=== PATIENT | male | born 1935 | race Caucasian/White ===

== ENCOUNTER 2018-05-24 09:24 | Outpatient (CLI) | payer MEDICARE, OTHER, SELFPAY ==
[2018-05-24 11:30] LABS: Hemoglobin A1C 6.8 % (4.5-6.2)
== END 2018-05-24 09:25 ==
PROVIDERS: PCP Family Medicine; Visit Provider Family Medicine
DX: R73.02 Impaired glucose tolerance (oral) (principal)
CPT/HCPCS: 36415; 83036

== ENCOUNTER 2021-04-08 10:45 | Outpatient (CLI) | payer MEDICARE, OTHER, SELFPAY ==
[2021-04-08 12:34] LABS: HCT 36.6 % (40.0-50.0); HGB 11.8 g/dL (13.5-17.5); MCH 30.3 pg (27.0-33.0); MCHC 32.2 % (32.0-36.0); MCV 93.8 fL (80-95); MPV 11.1 fL (8.0-11.0); Platelet Count 196 10^3/uL (130-400); RDW 12.2 % (11.8-14.1); RDW-SD 42.3 fL; WBC 7.72 10^3/uL (4.4-10.8)
[2021-04-08 12:43] LABS: Anion Gap 11.3 mmol/L (3-11); BUN 66 mg/dL (7-18); CO2 18.7 mmol/L (21.0-32.0); Calcium 8.9 mg/dL (8.5-10.1); Chloride 110 mmol/L (98-107); Estimated GFR 12.26 (mL/min/1.73m2); Glucose 107 mg/dL (74-106); Sodium 140 mmol/L (136-145)
[2021-04-08 12:45] LABS: Hemoglobin A1C 6.5 % (<5.7)
[2021-04-08 12:48] LABS: CREATININE 4.6 mg/dL (0.70-1.30); Potassium 7.5 mmol/L (3.5-5.1)
[2021-04-09 09:27] LABS: Kappa Free Light Chain 115.67 mg/dL (0.33-1.94); Lambda Free Light Chain 1.89 mg/dL (0.57-2.63)
[2021-04-09 13:24] LABS: Albumin 60.5 % (55.8-66.1); Comment (See Note); Monoclonal Spike 6.1 % (None Seen); Total Protein 7.1 g/dL (6.3-8.2)
[2021-04-09 16:08] LABS: Immunotyping, Serum (See Note)
== END 2021-04-08 10:46 | disposition home or self-care (01) ==
PROVIDERS: PCP Family Medicine; Referring Provider Family Medicine; Visit Provider Family Medicine
DX: E87.1 Hypo-osmolality and hyponatremia (principal); R73.9 Hyperglycemia, unspecified; R53.83 Other fatigue; C90.00 Multiple myeloma not having achieved remission
CPT/HCPCS: 36415; 80048; 85027; 83036; 83883; 84165; 86320

== ENCOUNTER 2021-04-29 07:09 | Outpatient (CLI) | payer MEDICARE, OTHER, SELFPAY ==
[2021-04-29 07:22] LABS: Abs Immature Grans 0.04 10^3/uL (0.0-0.06); Absolute Basophil Count 0.01 10^3/uL (0.0-0.2); Absolute Eosinophil Count 0.35 10^3/uL (0.0-0.7); Absolute Lymphocyte Count 0.82 10^3/uL (1.2-3.4); Absolute Monocyte Count 0.63 10^3/uL (0.1-0.8); Absolute Neutrophil Count 5.02 10^3/uL (1.2-6.7); Basophils % 0.1; Eosinophils % 5.1; HCT 33.2 % (40.0-50.0); HGB 11.2 g/dL (13.5-17.5); Immature Grans % 0.6; Lymphocytes % 11.9; MCH 30.4 pg (27.0-33.0); MCHC 33.7 % (32.0-36.0); MPV 10.8 fL (8.0-11.0); Monocytes % 9.2; Neutrophils % 73.1; Nucleated RBC 0 %; Platelet Count 171 10^3/uL (130-400); RBC 3.69 10^6/uL (4.36-5.78); RDW 11.9 % (11.8-14.1); RDW-SD 39.1 fL; WBC 6.87 10^3/uL (4.4-10.8)
[2021-04-29 07:38] LABS: ALT 40 U/L (16-63); AST 16 U/L (15-37); Albumin 3.4 g/dL (3.4-5.0); Alkaline Phosphatase 41 U/L (46-116); Anion Gap 10.1 mmol/L (3-11); BUN 48 mg/dL (7-18); Bilirubin, Total 0.6 mg/dL (0.2-1.0); CO2 22.9 mmol/L (21.0-32.0); CREATININE 2.8 mg/dL (0.70-1.30); Calcium 8.2 mg/dL (8.5-10.1); Chloride 102 mmol/L (98-107); Estimated GFR 21.75 (mL/min/1.73m2); Glucose 198 mg/dL (74-106); Potassium 4.6 mmol/L (3.5-5.1); Sodium 135 mmol/L (136-145); Total Protein 6.8 g/dL (6.4-8.2)
== END 2021-04-29 07:10 | disposition home or self-care (01) ==
PROVIDERS: PCP Family Medicine; Visit Provider Internal Medicine Hematology & Oncology
DX: C90.01 Multiple myeloma in remission (principal)
CPT/HCPCS: 36415; 80053; 85025

== ENCOUNTER 2021-05-06 03:35 | Outpatient (CLI) | payer MEDICARE, OTHER, SELFPAY ==
[2021-05-06 08:37] LABS: Abs Immature Grans 0.05 10^3/uL (0.0-0.06); Absolute Basophil Count 0.01 10^3/uL (0.0-0.2); Absolute Eosinophil Count 0.14 10^3/uL (0.0-0.7); Absolute Lymphocyte Count 0.57 10^3/uL (1.2-3.4); Absolute Monocyte Count 1.04 10^3/uL (0.1-0.8); Absolute Neutrophil Count 5.28 10^3/uL (1.2-6.7); Basophils % 0.1; HCT 36.1 % (40.0-50.0); HGB 12.2 g/dL (13.5-17.5); Immature Grans % 0.7; MCH 30.3 pg (27.0-33.0); MCHC 33.8 % (32.0-36.0); MCV 89.8 fL (80-95); MPV 11.4 fL (8.0-11.0); Monocytes % 14.7; Neutrophils % 74.5; Nucleated RBC 0 %; Platelet Count 157 10^3/uL (130-400); RBC 4.02 10^6/uL (4.36-5.78); RDW 11.8 % (11.8-14.1); RDW-SD 38.5 fL; WBC 7.09 10^3/uL (4.4-10.8)
[2021-05-06 08:53] LABS: ALT 65 U/L (16-63); AST 18 U/L (15-37); Albumin 3.5 g/dL (3.4-5.0); Alkaline Phosphatase 43 U/L (46-116); BUN 48 mg/dL (7-18); Bilirubin, Total 1.1 mg/dL (0.2-1.0); CREATININE 2.7 mg/dL (0.70-1.30); Calcium 8.4 mg/dL (8.5-10.1); Chloride 99 mmol/L (98-107); Estimated GFR 22.68 (mL/min/1.73m2); Glucose 156 mg/dL (74-106); Potassium 3.9 mmol/L (3.5-5.1); Sodium 136 mmol/L (136-145); Total Protein 6.9 g/dL (6.4-8.2)
[2021-05-07 10:26] LABS: IgA 78 mg/dL (85-499); IgG 466 mg/dL (610-1,616); IgM 20 mg/dL (35-242); Lambda Free Light Chain 1.12 mg/dL (0.57-2.63)
[2021-05-07 15:36] LABS: Comment (See Note); Monoclonal Spike 2.5 % (None Seen); Total Protein 6.4 g/dL (6.3-8.2)
== END 2021-05-06 03:36 | disposition home or self-care (01) ==
LOC: LBO 03:36
PROVIDERS: PCP Family Medicine; Visit Provider Internal Medicine Hematology & Oncology
DX: C90.01 Multiple myeloma in remission (principal)
CPT/HCPCS: 36415; 80053; 82784; 83883; 84165; 85025

== ENCOUNTER 2021-06-03 02:13 | Outpatient (RCR) | payer MEDICARE, OTHER, SELFPAY ==
[2021-05-13 07:29] LABS: Abs Immature Grans 0.02 10^3/uL (0.0-0.06); Absolute Basophil Count 0.01 10^3/uL (0.0-0.2); Absolute Eosinophil Count 0.11 10^3/uL (0.0-0.7); Absolute Lymphocyte Count 0.39 10^3/uL (1.2-3.4); Absolute Monocyte Count 0.31 10^3/uL (0.1-0.8); Absolute Neutrophil Count 0.77 10^3/uL (1.2-6.7); Basophils % 0.6; Eosinophils % 6.8; HCT 32.7 % (40.0-50.0); Immature Grans % 1.2; Lymphocytes % 24.2; MCH 30.5 pg (27.0-33.0); MCHC 33.6 % (32.0-36.0); MCV 90.6 fL (80-95); MPV 11.4 fL (8.0-11.0); Monocytes % 19.3; Neutrophils % 47.9; Nucleated RBC 0 %; Platelet Count 166 10^3/uL (130-400); RBC 3.61 10^6/uL (4.36-5.78); RDW 12.2 % (11.8-14.1); RDW-SD 39.9 fL
[2021-05-13 07:44] LABS: ALT 49 U/L (16-63); AST 13 U/L (15-37); Albumin 3.1 g/dL (3.4-5.0); Alkaline Phosphatase 41 U/L (46-116); Anion Gap 8.8 mmol/L (3-11); BUN 33 mg/dL (7-18); Bilirubin, Total 0.7 mg/dL (0.2-1.0); CO2 25.2 mmol/L (21.0-32.0); CREATININE 2.2 mg/dL (0.70-1.30); Calcium 8.3 mg/dL (8.5-10.1); Chloride 100 mmol/L (98-107); Estimated GFR 28.73 (mL/min/1.73m2); Glucose 163 mg/dL (74-106); Potassium 4.4 mmol/L (3.5-5.1); Sodium 134 mmol/L (136-145); Total Protein 6.6 g/dL (6.4-8.2)
[2021-05-13 08:09] LABS: WBC 1.61 10^3/uL (4.4-10.8)
[2021-05-13 08:10] LABS: Diff Comment Diff Reviewed; RBC Morphology Normal
[2021-05-20] MEDS: Normal Saline Flush 10 ML SYR IVP (08:07)
[2021-05-20 08:24] LABS: Abs Immature Grans 0.03 10^3/uL (0.0-0.06); Absolute Basophil Count 0.03 10^3/uL (0.0-0.2); Absolute Eosinophil Count 0.15 10^3/uL (0.0-0.7); Absolute Lymphocyte Count 0.33 10^3/uL (1.2-3.4); Absolute Monocyte Count 0.53 10^3/uL (0.1-0.8); Absolute Neutrophil Count 2.11 10^3/uL (1.2-6.7); Basophils % 0.9; Eosinophils % 4.7; HCT 31.2 % (40.0-50.0); HGB 10.4 g/dL (13.5-17.5); Immature Grans % 0.9; Lymphocytes % 10.4; MCH 30.4 pg (27.0-33.0); MCHC 33.3 % (32.0-36.0); MCV 91.2 fL (80-95); MPV 10.6 fL (8.0-11.0); Monocytes % 16.7; Neutrophils % 66.4; Nucleated RBC 0 %; Platelet Count 263 10^3/uL (130-400); RBC 3.42 10^6/uL (4.36-5.78); RDW 13.2 % (11.8-14.1); RDW-SD 42.1 fL; WBC 3.18 10^3/uL (4.4-10.8)
[2021-05-20 08:39] LABS: ALT 46 U/L (16-63); AST 14 U/L (15-37); Alkaline Phosphatase 44 U/L (46-116); Anion Gap 8.8 mmol/L (3-11); BUN 38 mg/dL (7-18); Bilirubin, Total 0.6 mg/dL (0.2-1.0); CO2 24.2 mmol/L (21.0-32.0); CREATININE 2.2 mg/dL (0.70-1.30); Calcium 8.6 mg/dL (8.5-10.1); Chloride 103 mmol/L (98-107); Estimated GFR 28.73 (mL/min/1.73m2); Glucose 118 mg/dL (74-106); Sodium 136 mmol/L (136-145); Total Protein 6.6 g/dL (6.4-8.2)
[2021-05-20 10:02] LABS: Iron 56 ug/dL (65-175); Total Iron Binding Capacity 283 ug/dL (250-450); Transferrin Sat 20 % (20-55)
[2021-05-21 10:10] LABS: IgA 86 mg/dL (85-499); IgG 330 mg/dL (610-1,616); IgM 16 mg/dL (35-242); Kappa Free Light Chain 2.36 mg/dL (0.33-1.94); Lambda Free Light Chain 1.26 mg/dL (0.57-2.63)
[2021-05-21 14:02] LABS: Albumin 54.1 % (55.8-66.1); Comment (See Note); Monoclonal Spike 2.1 % (None Seen); Total Protein 5.9 g/dL (6.3-8.2)
[2021-05-27] MEDS: Normal Saline Flush 10 ML SYR IVP (07:32)
[2021-05-27 07:58] LABS: Abs Immature Grans 0.07 10^3/uL (0.0-0.06); Absolute Basophil Count 0.03 10^3/uL (0.0-0.2); Absolute Eosinophil Count 0.14 10^3/uL (0.0-0.7); Absolute Lymphocyte Count 0.23 10^3/uL (1.2-3.4); Absolute Monocyte Count 0.16 10^3/uL (0.1-0.8); Absolute Neutrophil Count 4.29 10^3/uL (1.2-6.7); Basophils % 0.6; Eosinophils % 2.8; HCT 29.7 % (40.0-50.0); HGB 9.9 g/dL (13.5-17.5); Immature Grans % 1.4; Lymphocytes % 4.7; MCH 30.4 pg (27.0-33.0); MCHC 33.3 % (32.0-36.0); MCV 91.1 fL (80-95); MPV 11.8 fL (8.0-11.0); Monocytes % 3.3; Neutrophils % 87.2; Nucleated RBC 0 %; Platelet Count 200 10^3/uL (130-400); RBC 3.26 10^6/uL (4.36-5.78); RDW 13.5 % (11.8-14.1); RDW-SD 43.8 fL; WBC 4.92 10^3/uL (4.4-10.8)
[2021-05-27 08:04] LABS: ALT 49 U/L (16-63); AST 19 U/L (15-37); Albumin 2.5 g/dL (3.4-5.0); Alkaline Phosphatase 45 U/L (46-116); Anion Gap 10.3 mmol/L (3-11); BUN 32 mg/dL (7-18); Bilirubin, Total 0.7 mg/dL (0.2-1.0); CO2 23.7 mmol/L (21.0-32.0); CREATININE 2.2 mg/dL (0.70-1.30); Calcium 8.3 mg/dL (8.5-10.1); Chloride 99 mmol/L (98-107); Estimated GFR 28.73 (mL/min/1.73m2); Glucose 127 mg/dL (74-106); Potassium 3.8 mmol/L (3.5-5.1); Sodium 133 mmol/L (136-145); Total Protein 6.4 g/dL (6.4-8.2)
[2021-06-03] MEDS: Normal Saline Flush 10 ML SYR IVP (08:39)
[2021-06-03 08:46] LABS: Abs Immature Grans 0.06 10^3/uL (0.0-0.06); Absolute Basophil Count 0.01 10^3/uL (0.0-0.2); Absolute Eosinophil Count 0.05 10^3/uL (0.0-0.7); Absolute Lymphocyte Count 0.26 10^3/uL (1.2-3.4); Absolute Monocyte Count 0.29 10^3/uL (0.1-0.8); Basophils % 0.2; HCT 33.1 % (40.0-50.0); HGB 10.9 g/dL (13.5-17.5); Immature Grans % 1.2; Lymphocytes % 5.3; MCH 30.3 pg (27.0-33.0); MCHC 32.9 % (32.0-36.0); MCV 91.9 fL (80-95); MPV 11.7 fL (8.0-11.0); Neutrophils % 86.3; Nucleated RBC 0 %; Platelet Count 191 10^3/uL (130-400); RDW 13.7 % (11.8-14.1); RDW-SD 45.4 fL; WBC 4.87 10^3/uL (4.4-10.8)
[2021-06-03 09:13] LABS: Iron 125 ug/dL (65-175); Total Iron Binding Capacity 232 ug/dL (250-450); Transferrin Sat 54 % (20-55)
[2021-06-03 09:35] LABS: ALT 65 U/L (16-63); AST 21 U/L (15-37); Albumin 2.5 g/dL (3.4-5.0); Alkaline Phosphatase 58 U/L (46-116); Anion Gap 16.4 mmol/L (3-11); BUN 41 mg/dL (7-18); Bilirubin, Total 0.4 mg/dL (0.2-1.0); CO2 21.6 mmol/L (21.0-32.0); CREATININE 2.6 mg/dL (0.70-1.30); Calcium 8.2 mg/dL (8.5-10.1); Chloride 97 mmol/L (98-107); Estimated GFR 23.69 (mL/min/1.73m2); Ferritin 1845 ng/mL (26-388); Glucose 175 mg/dL (74-106); Potassium 3.5 mmol/L (3.5-5.1); Sodium 135 mmol/L (136-145); Total Protein 6.8 g/dL (6.4-8.2)
== END 2021-06-09 23:59 | disposition home or self-care (01) ==
LOC: INF 02:13
PROVIDERS: Internal Medicine Hematology & Oncology; PCP Family Medicine; Visit Provider Internal Medicine Medical Oncology
DX: C90.01 Multiple myeloma in remission (principal); K92.2 Gastrointestinal hemorrhage, unspecified
CPT/HCPCS: 36415; 80053; 82784; 82728; 83540; 83550; 83883; 84165; 85025

== ENCOUNTER 2021-07-01 13:30 | Outpatient (RCR) | payer MEDICARE, OTHER, SELFPAY ==
[2021-06-10 07:24] LABS: Abs Immature Grans 0.11 10^3/uL (0.0-0.06); Absolute Basophil Count 0.01 10^3/uL (0.0-0.2); Absolute Eosinophil Count 1.22 10^3/uL (0.0-0.7); Absolute Lymphocyte Count 0.67 10^3/uL (1.2-3.4); Absolute Monocyte Count 0.53 10^3/uL (0.1-0.8); Absolute Neutrophil Count 2.71 10^3/uL (1.2-6.7); Basophils % 0.2; Eosinophils % 23.2; HCT 29.3 % (40.0-50.0); HGB 9.6 g/dL (13.5-17.5); Immature Grans % 2.1; Lymphocytes % 12.8; MCH 30.4 pg (27.0-33.0); MCHC 32.8 % (32.0-36.0); MCV 92.7 fL (80-95); MPV 10.4 fL (8.0-11.0); Monocytes % 10.1; Neutrophils % 51.6; Nucleated RBC 0 %; Platelet Count 221 10^3/uL (130-400); RBC 3.16 10^6/uL (4.36-5.78); RDW-SD 47.1 fL; WBC 5.25 10^3/uL (4.4-10.8)
[2021-06-10 07:55] LABS: ALT 56 U/L (16-63); AST 14 U/L (15-37); Albumin 2.2 g/dL (3.4-5.0); Alkaline Phosphatase 50 U/L (46-116); Anion Gap 8.5 mmol/L (3-11); BUN 34 mg/dL (7-18); Bilirubin, Total 0.4 mg/dL (0.2-1.0); CO2 24.5 mmol/L (21.0-32.0); CREATININE 1.8 mg/dL (0.70-1.30); Calcium 8.2 mg/dL (8.5-10.1); Chloride 103 mmol/L (98-107); Estimated GFR 36.21 (mL/min/1.73m2); Glucose 175 mg/dL (74-106); Sodium 136 mmol/L (136-145); Total Protein 5.7 g/dL (6.4-8.2)
[2021-06-17 09:08] LABS: Abs Immature Grans 0.14 10^3/uL (0.0-0.06); Absolute Basophil Count 0.02 10^3/uL (0.0-0.2); Absolute Eosinophil Count 0.37 10^3/uL (0.0-0.7); Absolute Lymphocyte Count 1.17 10^3/uL (1.2-3.4); Absolute Monocyte Count 0.31 10^3/uL (0.1-0.8); Absolute Neutrophil Count 3.96 10^3/uL (1.2-6.7); Basophils % 0.3; Eosinophils % 6.2; HCT 28.2 % (40.0-50.0); Immature Grans % 2.3; Lymphocytes % 19.6; MCH 30.3 pg (27.0-33.0); MCHC 31.9 % (32.0-36.0); MCV 94.9 fL (80-95); MPV 10.2 fL (8.0-11.0); Monocytes % 5.2; Neutrophils % 66.4; Nucleated RBC 0 %; Platelet Count 222 10^3/uL (130-400); RBC 2.97 10^6/uL (4.36-5.78); RDW 15.3 % (11.8-14.1); RDW-SD 51.9 fL; WBC 5.97 10^3/uL (4.4-10.8)
[2021-06-17 09:20] LABS: ALT 56 U/L (16-63); AST 16 U/L (15-37); Albumin 2.6 g/dL (3.4-5.0); Alkaline Phosphatase 57 U/L (46-116); Anion Gap 8.8 mmol/L (3-11); BUN 26 mg/dL (7-18); Bilirubin, Total 0.4 mg/dL (0.2-1.0); CO2 26.2 mmol/L (21.0-32.0); CREATININE 1.4 mg/dL (0.70-1.30); Calcium 8.2 mg/dL (8.5-10.1); Chloride 104 mmol/L (98-107); Estimated GFR 48.28 (mL/min/1.73m2); Glucose 112 mg/dL (74-106); Potassium 3.8 mmol/L (3.5-5.1); Sodium 139 mmol/L (136-145); Total Protein 5.7 g/dL (6.4-8.2)
[2021-06-18 12:23] LABS: IgA 54 mg/dL (85-499); IgG 299 mg/dL (610-1,616); IgM <12 mg/dL (35-242); Lambda Free Light Chain 1.03 mg/dL (0.57-2.63)
[2021-06-18 14:33] LABS: Albumin 54.3 % (55.8-66.1); Comment (See Note); Monoclonal Spike 1.8 % (None Seen); Total Protein 5.1 g/dL (6.3-8.2)
== END 2021-07-09 23:59 | disposition home or self-care (01) ==
LOC: INF 13:30
PROVIDERS: Internal Medicine Hematology & Oncology; PCP Family Medicine; Visit Provider Internal Medicine Medical Oncology
DX: C90.01 Multiple myeloma in remission (principal)
CPT/HCPCS: 36415; 80053; 82784; 83883; 84165; 85025

== ENCOUNTER 2021-08-05 03:44 | Outpatient (RCR) | payer MEDICARE, OTHER, SELFPAY ==
[2021-07-15 09:08] LABS: Abs Immature Grans 0.05 10^3/uL (0.0-0.06); Absolute Basophil Count 0.02 10^3/uL (0.0-0.2); Absolute Eosinophil Count 0.08 10^3/uL (0.0-0.7); Absolute Lymphocyte Count 1.22 10^3/uL (1.2-3.4); Absolute Monocyte Count 0.76 10^3/uL (0.1-0.8); Absolute Neutrophil Count 5.29 10^3/uL (1.2-6.7); Basophils % 0.3; Eosinophils % 1.1; HCT 31.2 % (40.0-50.0); Immature Grans % 0.7; Lymphocytes % 16.4; MCH 31.8 pg (27.0-33.0); MCHC 32.1 % (32.0-36.0); MCV 99.4 fL (80-95); MPV 10.5 fL (8.0-11.0); Monocytes % 10.2; Neutrophils % 71.3; Nucleated RBC 0 %; Platelet Count 212 10^3/uL (130-400); RBC 3.14 10^6/uL (4.36-5.78); RDW 16.9 % (11.8-14.1); RDW-SD 61.1 fL; WBC 7.42 10^3/uL (4.4-10.8)
[2021-07-15 09:20] LABS: ALT 25 U/L (16-63); AST 13 U/L (15-37); Albumin 3.2 g/dL (3.4-5.0); Alkaline Phosphatase 59 U/L (46-116); Anion Gap 6.9 mmol/L (3-11); BUN 17 mg/dL (7-18); Bilirubin, Total 0.4 mg/dL (0.2-1.0); CO2 28.1 mmol/L (21.0-32.0); CREATININE 1.2 mg/dL (0.70-1.30); Calcium 8.4 mg/dL (8.5-10.1); Chloride 108 mmol/L (98-107); Estimated GFR 57.68 (mL/min/1.73m2); Glucose 97 mg/dL (74-106); Potassium 3.7 mmol/L (3.5-5.1); Sodium 143 mmol/L (136-145); Total Protein 6.4 g/dL (6.4-8.2)
[2021-07-16 10:06] LABS: IgA 32 mg/dL (85-499); IgG 285 mg/dL (610-1,616); IgM <12 mg/dL (35-242); Kappa Free Light Chain 1.03 mg/dL (0.33-1.94); Lambda Free Light Chain 0.78 mg/dL (0.57-2.63)
[2021-07-16 13:52] LABS: Albumin 61.2 % (55.8-66.1); Comment (See Note)
[2021-08-05 12:36] LABS: Abs Immature Grans 0.05 10^3/uL (0.0-0.06); Absolute Basophil Count 0.02 10^3/uL (0.0-0.2); Absolute Eosinophil Count 0.09 10^3/uL (0.0-0.7); Absolute Lymphocyte Count 1.25 10^3/uL (1.2-3.4); Absolute Monocyte Count 0.64 10^3/uL (0.1-0.8); Absolute Neutrophil Count 5.24 10^3/uL (1.2-6.7); Basophils % 0.3; Eosinophils % 1.2; HCT 31.2 % (40.0-50.0); HGB 10.3 g/dL (13.5-17.5); Immature Grans % 0.7; Lymphocytes % 17.1; MCH 31.6 pg (27.0-33.0); MCV 95.7 fL (80-95); MPV 10.2 fL (8.0-11.0); Monocytes % 8.8; Neutrophils % 71.9; Nucleated RBC 0 %; Platelet Count 206 10^3/uL (130-400); RBC 3.26 10^6/uL (4.36-5.78); RDW 14.8 % (11.8-14.1); RDW-SD 52.2 fL; WBC 7.29 10^3/uL (4.4-10.8)
[2021-08-05 12:49] LABS: ALT 24 U/L (16-63); AST 12 U/L (15-37); Albumin 3.1 g/dL (3.4-5.0); Alkaline Phosphatase 50 U/L (46-116); Anion Gap 9.1 mmol/L (3-11); BUN 18 mg/dL (7-18); Bilirubin, Total 0.3 mg/dL (0.2-1.0); CO2 25.9 mmol/L (21.0-32.0); CREATININE 1.4 mg/dL (0.70-1.30); Calcium 8.5 mg/dL (8.5-10.1); Chloride 107 mmol/L (98-107); Estimated GFR 48.28 (mL/min/1.73m2); Glucose 177 mg/dL (74-106); Potassium 4.1 mmol/L (3.5-5.1); Sodium 142 mmol/L (136-145); Total Protein 6.1 g/dL (6.4-8.2)
== END 2021-08-09 23:59 | disposition home or self-care (01) ==
LOC: INF 03:44
PROVIDERS: Internal Medicine Hematology & Oncology; PCP Family Medicine; Visit Provider Internal Medicine Medical Oncology
DX: C90.01 Multiple myeloma in remission (principal)
CPT/HCPCS: 36415; 80053; 82784; 83883; 84165; 85025

== ENCOUNTER 2021-08-26 01:23 | Outpatient (RCR) | payer MEDICARE, OTHER, SELFPAY ==
[2021-08-26 08:18] LABS: Abs Immature Grans 0.08 10^3/uL (0.0-0.06); Absolute Basophil Count 0.04 10^3/uL (0.0-0.2); Absolute Eosinophil Count 0.12 10^3/uL (0.0-0.7); Absolute Lymphocyte Count 1.66 10^3/uL (1.2-3.4); Absolute Monocyte Count 0.74 10^3/uL (0.1-0.8); Absolute Neutrophil Count 5.92 10^3/uL (1.2-6.7); Basophils % 0.5; Eosinophils % 1.4; HCT 39.5 % (40.0-50.0); HGB 12.5 g/dL (13.5-17.5); Immature Grans % 0.9; Lymphocytes % 19.4; MCH 30.6 pg (27.0-33.0); MCHC 31.6 % (32.0-36.0); MCV 96.6 fL (80-95); MPV 10.9 fL (8.0-11.0); Monocytes % 8.6; Neutrophils % 69.2; Nucleated RBC 0 %; Platelet Count 194 10^3/uL (130-400); RBC 4.09 10^6/uL (4.36-5.78); RDW 14.5 % (11.8-14.1); RDW-SD 51.5 fL; WBC 8.56 10^3/uL (4.4-10.8)
[2021-08-26 08:32] LABS: Iron 66 ug/dL (65-175); Total Iron Binding Capacity 355 ug/dL (250-450); Transferrin Sat 19 % (20-55)
[2021-08-26 08:43] LABS: ALT 36 U/L (16-63); AST 15 U/L (15-37); Albumin 3.4 g/dL (3.4-5.0); Alkaline Phosphatase 53 U/L (46-116); Anion Gap 8.3 mmol/L (3-11); BUN 27 mg/dL (7-18); Bilirubin, Total 0.4 mg/dL (0.2-1.0); CO2 28.7 mmol/L (21.0-32.0); CREATININE 1.4 mg/dL (0.70-1.30); Chloride 105 mmol/L (98-107); Estimated GFR 48.28 (mL/min/1.73m2); Ferritin 146 ng/mL (26-388); Glucose 109 mg/dL (74-106); Sodium 142 mmol/L (136-145); Total Protein 6.5 g/dL (6.4-8.2)
[2021-08-27 12:21] LABS: IgA 33 mg/dL (85-499); IgG 333 mg/dL (610-1,616); IgM <12 mg/dL (35-242); Kappa Free Light Chain 1.01 mg/dL (0.33-1.94); Lambda Free Light Chain 0.68 mg/dL (0.57-2.63)
[2021-08-27 13:38] LABS: Albumin 62.6 % (55.8-66.1); Comment (See Note); Total Protein 6.2 g/dL (6.3-8.2)
== END 2021-09-08 23:59 | disposition home or self-care (01) ==
LOC: INF 01:23
PROVIDERS: Internal Medicine Hematology & Oncology; PCP Family Medicine; Visit Provider Internal Medicine Medical Oncology
DX: C90.01 Multiple myeloma in remission (principal)
CPT/HCPCS: 36415; 80053; 82784; 82728; 83540; 83550; 83883; 84165; 85025

== ENCOUNTER 2021-09-23 00:30 | Outpatient (RCR) | payer MEDICARE, OTHER, SELFPAY ==
[2021-09-09 13:22] LABS: Abs Immature Grans 0.03 10^3/uL (0.0-0.06); Absolute Basophil Count 0.02 10^3/uL (0.0-0.2); Absolute Eosinophil Count 0.09 10^3/uL (0.0-0.7); Absolute Lymphocyte Count 1.36 10^3/uL (1.2-3.4); Absolute Neutrophil Count 5.08 10^3/uL (1.2-6.7); Basophils % 0.3; Eosinophils % 1.2; HCT 36.3 % (40.0-50.0); HGB 11.5 g/dL (13.5-17.5); Immature Grans % 0.4; Lymphocytes % 18.7; MCH 30.3 pg (27.0-33.0); MCHC 31.7 % (32.0-36.0); MCV 95.8 fL (80-95); MPV 10.9 fL (8.0-11.0); Monocytes % 9.6; Neutrophils % 69.8; Nucleated RBC 0 %; Platelet Count 197 10^3/uL (130-400); RBC 3.79 10^6/uL (4.36-5.78); RDW 14.5 % (11.8-14.1); WBC 7.28 10^3/uL (4.4-10.8)
[2021-09-09 13:26] LABS: ALT 23 U/L (16-63); AST 13 U/L (15-37); Albumin 2.9 g/dL (3.4-5.0); Alkaline Phosphatase 44 U/L (46-116); BUN 19 mg/dL (7-18); Bilirubin, Total 0.3 mg/dL (0.2-1.0); CREATININE 1.3 mg/dL (0.70-1.30); Calcium 8.7 mg/dL (8.5-10.1); Chloride 104 mmol/L (98-107); Estimated GFR 52.59 (mL/min/1.73m2); Glucose 177 mg/dL (74-106); Potassium 3.7 mmol/L (3.5-5.1); Sodium 138 mmol/L (136-145); Total Protein 5.8 g/dL (6.4-8.2)
[2021-09-23 09:26] LABS: Abs Immature Grans 0.04 10^3/uL (0.0-0.06); Absolute Basophil Count 0.02 10^3/uL (0.0-0.2); Absolute Eosinophil Count 0.03 10^3/uL (0.0-0.7); Absolute Lymphocyte Count 0.42 10^3/uL (1.2-3.4); Absolute Monocyte Count 0.74 10^3/uL (0.1-0.8); Absolute Neutrophil Count 5.03 10^3/uL (1.2-6.7); Basophils % 0.3; Eosinophils % 0.5; HCT 41.9 % (40.0-50.0); HGB 13.2 g/dL (13.5-17.5); Immature Grans % 0.6; Lymphocytes % 6.7; MCH 30.1 pg (27.0-33.0); MCHC 31.5 % (32.0-36.0); MCV 95.7 fL (80-95); MPV 10.9 fL (8.0-11.0); Monocytes % 11.8; Neutrophils % 80.1; Nucleated RBC 0 %; Platelet Count 198 10^3/uL (130-400); RBC 4.38 10^6/uL (4.36-5.78); RDW 14.2 % (11.8-14.1); RDW-SD 50.7 fL; WBC 6.28 10^3/uL (4.4-10.8)
[2021-09-23 09:39] LABS: ALT 24 U/L (16-63); AST 23 U/L (15-37); Albumin 2.9 g/dL (3.4-5.0); Alkaline Phosphatase 38 U/L (46-116); Anion Gap 8.9 mmol/L (3-11); BUN 26 mg/dL (7-18); Bilirubin, Total 0.2 mg/dL (0.2-1.0); CO2 26.1 mmol/L (21.0-32.0); CREATININE 1.8 mg/dL (0.70-1.30); Calcium 8.2 mg/dL (8.5-10.1); Chloride 102 mmol/L (98-107); Estimated GFR 36.13 (mL/min/1.73m2); Glucose 151 mg/dL (74-106); Potassium 3.7 mmol/L (3.5-5.1); Sodium 137 mmol/L (136-145); Total Protein 6.1 g/dL (6.4-8.2)
[2021-09-23 15:19] LABS: NT-proBNP 263 pg/mL (<300)
[2021-09-24 10:16] LABS: IgA 24 mg/dL (85-499); IgG 242 mg/dL (610-1,616); IgM <12 mg/dL (35-242); Kappa Free Light Chain 1.11 mg/dL (0.33-1.94); Lambda Free Light Chain 0.78 mg/dL (0.57-2.63)
[2021-09-24 13:40] LABS: Albumin 57.4 % (55.8-66.1); Comment (See Note); Total Protein 5.8 g/dL (6.3-8.2)
== END 2021-10-09 23:59 | disposition home or self-care (01) ==
LOC: INF 00:30
PROVIDERS: Internal Medicine Hematology & Oncology; PCP Family Medicine; Visit Provider Internal Medicine Medical Oncology
DX: C90.01 Multiple myeloma in remission (principal); I50.9 Heart failure, unspecified
CPT/HCPCS: 36415; 80053; 82784; 83880; 83883; 84165; 85025

== ENCOUNTER 2021-10-21 01:33 | Outpatient (RCR) | payer MEDICARE, OTHER, SELFPAY ==
[2021-10-21 08:49] LABS: Abs Immature Grans 0.05 10^3/uL (0.0-0.06); Absolute Basophil Count 0.03 10^3/uL (0.0-0.2); Absolute Eosinophil Count 0.12 10^3/uL (0.0-0.7); Absolute Neutrophil Count 3.03 10^3/uL (1.2-6.7); Basophils % 0.6; Eosinophils % 2.5; HCT 36.7 % (40.0-50.0); HGB 11.4 g/dL (13.5-17.5); Lymphocytes % 20.7; MCH 29.8 pg (27.0-33.0); MCHC 31.1 % (32.0-36.0); MCV 96.1 fL (80-95); MPV 10.2 fL (8.0-11.0); Monocytes % 12.4; Neutrophils % 62.8; Nucleated RBC 0 %; Platelet Count 334 10^3/uL (130-400); RBC 3.82 10^6/uL (4.36-5.78); RDW-SD 56.7 fL; WBC 4.83 10^3/uL (4.4-10.8)
[2021-10-21 09:10] LABS: ALT 34 U/L (16-63); AST 20 U/L (15-37); Albumin 3.1 g/dL (3.4-5.0); Alkaline Phosphatase 52 U/L (46-116); Anion Gap 8.6 mmol/L (3-11); BUN 21 mg/dL (7-18); Bilirubin, Total 0.4 mg/dL (0.2-1.0); CO2 28.4 mmol/L (21.0-32.0); CREATININE 1.4 mg/dL (0.70-1.30); Calcium 8.4 mg/dL (8.5-10.1); Chloride 101 mmol/L (98-107); Estimated GFR 48.28 (mL/min/1.73m2); Glucose 104 mg/dL (74-106); Potassium 3.9 mmol/L (3.5-5.1); Sodium 138 mmol/L (136-145)
[2021-10-22 09:19] LABS: IgA 23 mg/dL (85-499); IgG 284 mg/dL (610-1,616); IgM <12 mg/dL (35-242); Kappa Free Light Chain 0.94 mg/dL (0.33-1.94); Lambda Free Light Chain 0.82 mg/dL (0.57-2.63)
[2021-10-22 13:29] LABS: Albumin 62.3 % (55.8-66.1); Comment (See Note); Total Protein 5.4 g/dL (6.3-8.2)
== END 2021-11-09 23:59 | disposition home or self-care (01) ==
LOC: INF 01:33
PROVIDERS: Internal Medicine Hematology & Oncology; PCP Family Medicine; Visit Provider Internal Medicine Medical Oncology
DX: C90.01 Multiple myeloma in remission (principal)
CPT/HCPCS: 36415; 80053; 82784; 83883; 84165; 85025

== ENCOUNTER 2021-11-18 00:43 | Outpatient (RCR) | payer MEDICARE, SELFPAY ==
[2021-11-18 08:54] LABS: Abs Immature Grans 0.02 10^3/uL (0.0-0.06); Absolute Basophil Count 0.04 10^3/uL (0.0-0.2); Absolute Eosinophil Count 0.07 10^3/uL (0.0-0.7); Absolute Lymphocyte Count 0.94 10^3/uL (1.2-3.4); Absolute Monocyte Count 0.66 10^3/uL (0.1-0.8); Absolute Neutrophil Count 2.98 10^3/uL (1.2-6.7); Basophils % 0.8; Eosinophils % 1.5; HCT 37.7 % (40.0-50.0); HGB 11.8 g/dL (13.5-17.5); Immature Grans % 0.4; MCH 29.9 pg (27.0-33.0); MCHC 31.3 % (32.0-36.0); MCV 95.4 fL (80-95); MPV 10.2 fL (8.0-11.0); Neutrophils % 63.3; Nucleated RBC 0 %; Platelet Count 258 10^3/uL (130-400); RBC 3.95 10^6/uL (4.36-5.78); RDW 15.9 % (11.8-14.1); WBC 4.71 10^3/uL (4.4-10.8)
[2021-11-18 09:04] LABS: ALT 17 U/L (16-63); AST 15 U/L (15-37); Albumin 3.1 g/dL (3.4-5.0); Alkaline Phosphatase 40 U/L (46-116); BUN 20 mg/dL (7-18); Bilirubin, Total 0.4 mg/dL (0.2-1.0); CREATININE 1.1 mg/dL (0.70-1.30); Calcium 8.6 mg/dL (8.5-10.1); Chloride 107 mmol/L (98-107); Glucose 94 mg/dL (74-106); Potassium 4.5 mmol/L (3.5-5.1); Sodium 139 mmol/L (136-145); Total Protein 5.7 g/dL (6.4-8.2)
[2021-11-19 10:39] LABS: IgA 17 mg/dL (85-499); IgG 293 mg/dL (610-1,616); IgM <12 mg/dL (35-242); Kappa Free Light Chain 0.94 mg/dL (0.33-1.94); Lambda Free Light Chain 0.61 mg/dL (0.57-2.63)
[2021-11-19 13:21] LABS: Albumin 63.4 % (55.8-66.1); Comment (See Note); Total Protein 5.1 g/dL (6.3-8.2)
== END 2021-12-07 23:59 | disposition home or self-care (01) ==
LOC: INF 00:43
PROVIDERS: Internal Medicine Hematology & Oncology; PCP Family Medicine; Visit Provider Internal Medicine Medical Oncology
DX: C90.01 Multiple myeloma in remission (principal)
CPT/HCPCS: 36415; 80053; 82784; 83883; 84165; 85025

== ENCOUNTER 2022-03-03 04:23 | Outpatient (CLI) | payer MEDICARE, SELFPAY ==
[2022-03-03 07:49] LABS: Abs Immature Grans 0.03 10^3/uL (0.0-0.06); Absolute Basophil Count 0.03 10^3/uL (0.0-0.2); Absolute Eosinophil Count 0.19 10^3/uL (0.0-0.7); Absolute Monocyte Count 0.86 10^3/uL (0.1-0.8); Absolute Neutrophil Count 4.25 10^3/uL (1.2-6.7); Basophils % 0.5; Eosinophils % 2.9; HCT 36.3 % (40.0-50.0); HGB 11.3 g/dL (13.5-17.5); Immature Grans % 0.5; MCHC 31.1 % (32.0-36.0); MCV 90 fL (80-95); MPV 9.8 fL (8.0-11.0); Monocytes % 13.3; Neutrophils % 65.8; Platelet Count 193 10^3/uL (130-400); RBC 4.04 10^6/uL (4.36-5.78); RDW 13.5 % (11.8-14.1); RDW-SD 44.6 fL; WBC 6.46 10^3/uL (4.4-10.8)
[2022-03-03 08:19] LABS: ALT 21 U/L (16-63); AST 18 U/L (15-37); Albumin 3.2 g/dL (3.4-5.0); Alkaline Phosphatase 46 U/L (46-116); Anion Gap 7.1 mmol/L (3-11); BUN 30 mg/dL (7-18); Bilirubin, Total 0.5 mg/dL (0.2-1.0); CO2 25.9 mmol/L (21.0-32.0); CREATININE 1.5 mg/dL (0.70-1.30); Calcium 8.8 mg/dL (8.5-10.1); Chloride 107 mmol/L (98-107); Estimated GFR 44.59 (mL/min/1.73m2); Ferritin 66 ng/mL (26-388); Glucose 115 mg/dL (74-106); Sodium 140 mmol/L (136-145); Total Protein 6.2 g/dL (6.4-8.2)
[2022-03-03 08:48] LABS: Iron 34 ug/dL (65-175); Total Iron Binding Capacity 316 ug/dL (250-450); Transferrin Sat 11 % (20-55)
[2022-03-04 10:11] LABS: IgA 27 mg/dL (85-499); IgG 363 mg/dL (610-1,616); IgM <12 mg/dL (35-242); Kappa Free Light Chain 1.49 mg/dL (0.33-1.94); Lambda Free Light Chain 0.93 mg/dL (0.57-2.63)
[2022-03-04 14:15] LABS: Albumin 59.9 % (55.8-66.1); Albumin g/dL 3.4 g/dL (3.6-5.2); Comment (See Note); Total Protein 5.6 g/dL (6.3-8.2)
[2022-03-04 15:37] LABS: Immunotyping, Serum (See Note)
== END 2022-03-03 04:24 | disposition home or self-care (01) ==
LOC: LBO 04:23
PROVIDERS: Internal Medicine Medical Oncology; PCP Family Medicine; Visit Provider Internal Medicine Hematology & Oncology
DX: C90.01 Multiple myeloma in remission (principal)
CPT/HCPCS: 36415; 80053; 82784; 82728; 83540; 83550; 83883; 84165; 85025; 86320

== ENCOUNTER 2022-03-08 00:47 | Outpatient (RCR) | payer MEDICARE, OTHER, SELFPAY | END 2022-03-09 23:59 | disposition home or self-care (01) | LOC: INF 00:47 | PROVIDERS: PCP Family Medicine; Visit Provider Internal Medicine Hematology & Oncology | DX: C90.00 Multiple myeloma not having achieved remission (principal) | CPT/HCPCS: 96372; Q0221 ==

== ENCOUNTER 2022-03-31 02:11 | Outpatient (CLI) | payer MEDICARE, OTHER, SELFPAY ==
[2022-03-31 10:59] LABS: Abs Immature Grans 0.03 10^3/uL (0.0-0.06); Absolute Basophil Count 0.04 10^3/uL (0.0-0.2); Absolute Eosinophil Count 0.13 10^3/uL (0.0-0.7); Absolute Lymphocyte Count 1.11 10^3/uL (1.2-3.4); Absolute Monocyte Count 0.81 10^3/uL (0.1-0.8); Absolute Neutrophil Count 4.89 10^3/uL (1.2-6.7); Basophils % 0.6; Eosinophils % 1.9; HCT 37.2 % (40.0-50.0); HGB 11.8 g/dL (13.5-17.5); Immature Grans % 0.4; Lymphocytes % 15.8; MCH 28.1 pg (27.0-33.0); MCHC 31.7 % (32.0-36.0); MCV 89 fL (80-95); MPV 10.1 fL (8.0-11.0); Monocytes % 11.6; Neutrophils % 69.7; Platelet Count 251 10^3/uL (130-400); RDW 13.6 % (11.8-14.1); RDW-SD 44.2 fL; WBC 7.01 10^3/uL (4.4-10.8)
[2022-03-31 11:21] LABS: Iron 39 ug/dL (65-175); Total Iron Binding Capacity 342 ug/dL (250-450); Transferrin Sat 11 % (20-55)
[2022-03-31 11:27] LABS: ALT 17 U/L (16-63); AST 16 U/L (15-37); Albumin 3.3 g/dL (3.4-5.0); Alkaline Phosphatase 42 U/L (46-116); Anion Gap 9.1 mmol/L (3-11); BUN 39 mg/dL (7-18); Bilirubin, Total 0.4 mg/dL (0.2-1.0); CO2 27.9 mmol/L (21.0-32.0); CREATININE 1.5 mg/dL (0.70-1.30); Calcium 8.6 mg/dL (8.5-10.1); Chloride 105 mmol/L (98-107); Estimated GFR 44.59 (mL/min/1.73m2); Ferritin 53 ng/mL (26-388); Glucose 112 mg/dL (74-106); Potassium 4.6 mmol/L (3.5-5.1); Sodium 142 mmol/L (136-145); Total Protein 6.5 g/dL (6.4-8.2)
[2022-04-01 10:16] LABS: IgA 30 mg/dL (85-499); IgG 372 mg/dL (610-1,616); IgM <12 mg/dL (35-242); Kappa Free Light Chain 1.11 mg/dL (0.33-1.94); Lambda Free Light Chain 0.68 mg/dL (0.57-2.63)
[2022-04-01 13:07] LABS: Albumin 60.5 % (55.8-66.1); Albumin g/dL 3.5 g/dL (3.6-5.2); Comment (See Note); Total Protein 5.8 g/dL (6.3-8.2)
== END 2022-03-31 02:12 | disposition home or self-care (01) ==
PROVIDERS: PCP Family Medicine; Visit Provider Internal Medicine Hematology & Oncology
DX: C90.01 Multiple myeloma in remission (principal); D64.9 Anemia, unspecified
CPT/HCPCS: 36415; 80053; 82784; 82728; 83540; 83550; 83883; 84165; 85025

== ENCOUNTER 2022-04-28 01:30 | Outpatient (CLI) | payer MEDICARE, OTHER, SELFPAY ==
[2022-04-28 09:18] LABS: Abs Immature Grans 0.05 10^3/uL (0.0-0.06); Absolute Basophil Count 0.04 10^3/uL (0.0-0.2); Absolute Eosinophil Count 0.19 10^3/uL (0.0-0.7); Absolute Lymphocyte Count 1.07 10^3/uL (1.2-3.4); Absolute Monocyte Count 0.96 10^3/uL (0.1-0.8); Absolute Neutrophil Count 5.56 10^3/uL (1.2-6.7); Basophils % 0.5; Eosinophils % 2.4; HGB 12.9 g/dL (13.5-17.5); Immature Grans % 0.6; Lymphocytes % 13.6; MCH 28.2 pg (27.0-33.0); MCHC 32.3 % (32.0-36.0); MCV 88 fL (80-95); MPV 10.4 fL (8.0-11.0); Monocytes % 12.2; Neutrophils % 70.7; Platelet Count 274 10^3/uL (130-400); RBC 4.57 10^6/uL (4.36-5.78); RDW 14.2 % (11.8-14.1); RDW-SD 45.2 fL; WBC 7.87 10^3/uL (4.4-10.8)
[2022-04-28 09:32] LABS: ALT 22 U/L (16-63); AST 13 U/L (15-37); Albumin 3.5 g/dL (3.4-5.0); Alkaline Phosphatase 44 U/L (46-116); Anion Gap 7.4 mmol/L (3-11); BUN 36 mg/dL (7-18); Bilirubin, Total 0.5 mg/dL (0.2-1.0); CO2 28.6 mmol/L (21.0-32.0); CREATININE 1.6 mg/dL (0.70-1.30); Calcium 8.4 mg/dL (8.5-10.1); Chloride 104 mmol/L (98-107); Estimated GFR 41.39 (mL/min/1.73m2); Ferritin 58 ng/mL (26-388); Glucose 116 mg/dL (74-106); Potassium 4.4 mmol/L (3.5-5.1); Sodium 140 mmol/L (136-145); Total Protein 6.5 g/dL (6.4-8.2)
[2022-04-28 09:34] LABS: Iron 53 ug/dL (65-175); Total Iron Binding Capacity 329 ug/dL (250-450); Transferrin Sat 16 % (20-55)
[2022-04-28 13:52] LABS: Lab Add On Test DONE
[2022-04-28 13:56] LABS: ESR 19 mm/hr (0-20)
[2022-04-28 14:36] LABS: Hemoglobin A1C 6.3 % (<5.7)
[2022-04-29 10:37] LABS: IgA 34 mg/dL (85-499); IgG 382 mg/dL (610-1,616); IgM <12 mg/dL (35-242); Kappa Free Light Chain 1.07 mg/dL (0.33-1.94); Lambda Free Light Chain 0.67 mg/dL (0.57-2.63)
[2022-04-29 13:37] LABS: Albumin 60.5 % (55.8-66.1); Albumin g/dL 3.6 g/dL (3.6-5.2); Comment (See Note); Total Protein 5.9 g/dL (6.3-8.2)
== END 2022-04-28 01:31 | disposition home or self-care (01) ==
PROVIDERS: PCP Family Medicine; Visit Provider Internal Medicine Hematology & Oncology
DX: D64.9 Anemia, unspecified (principal); C90.01 Multiple myeloma in remission
CPT/HCPCS: 36415; 80053; 82784; 85652; 82728; 83036; 83540; 83550; 83883; 84165; 85025; 86140

== ENCOUNTER 2022-05-26 09:29 | Outpatient (CLI) | payer MEDICARE, OTHER, SELFPAY ==
[2022-05-26 08:20] LABS: Abs Immature Grans 0.04 10^3/uL (0.0-0.06); Absolute Basophil Count 0.05 10^3/uL (0.0-0.2); Absolute Eosinophil Count 0.19 10^3/uL (0.0-0.7); Absolute Lymphocyte Count 1.15 10^3/uL (1.2-3.4); Absolute Monocyte Count 1.07 10^3/uL (0.1-0.8); Absolute Neutrophil Count 6.58 10^3/uL (1.2-6.7); Basophils % 0.6; Eosinophils % 2.1; HCT 38.4 % (40.0-50.0); HGB 12.3 g/dL (13.5-17.5); Immature Grans % 0.4; Lymphocytes % 12.7; MCH 28.1 pg (27.0-33.0); MCV 88 fL (80-95); MPV 9.7 fL (8.0-11.0); Monocytes % 11.8; Neutrophils % 72.4; Platelet Count 274 10^3/uL (130-400); RBC 4.38 10^6/uL (4.36-5.78); RDW 14.7 % (11.8-14.1); RDW-SD 47.6 fL; WBC 9.08 10^3/uL (4.4-10.8)
[2022-05-26 08:50] LABS: Iron 43 ug/dL (65-175); Total Iron Binding Capacity 348 ug/dL (250-450); Transferrin Sat 12 % (20-55)
[2022-05-26 08:52] LABS: ALT 17 U/L (16-63); AST 13 U/L (15-37); Albumin 3.3 g/dL (3.4-5.0); Alkaline Phosphatase 43 U/L (46-116); Anion Gap 7.2 mmol/L (3-11); BUN 29 mg/dL (7-18); Bilirubin, Total 0.4 mg/dL (0.2-1.0); CO2 29.8 mmol/L (21.0-32.0); CREATININE 1.4 mg/dL (0.70-1.30); Calcium 8.8 mg/dL (8.5-10.1); Chloride 102 mmol/L (98-107); Estimated GFR 48.28 (mL/min/1.73m2); Ferritin 58 ng/mL (26-388); Glucose 98 mg/dL (74-106); Potassium 4.3 mmol/L (3.5-5.1); Sodium 139 mmol/L (136-145); Total Protein 6.5 g/dL (6.4-8.2)
[2022-05-27 10:02] LABS: IgA 34 mg/dL (85-499); IgG 355 mg/dL (610-1,616); IgM <12 mg/dL (35-242); Kappa Free Light Chain 1.16 mg/dL (0.33-1.94); Lambda Free Light Chain 0.81 mg/dL (0.57-2.63)
[2022-05-27 13:41] LABS: Albumin 60.7 % (55.8-66.1); Albumin g/dL 3.5 g/dL (3.6-5.2); Comment (See Note); Total Protein 5.8 g/dL (6.3-8.2)
== END 2022-05-26 09:30 | disposition home or self-care (01) ==
LOC: LBO 09:44
PROVIDERS: PCP Family Medicine; Visit Provider Internal Medicine Hematology & Oncology
DX: D64.9 Anemia, unspecified (principal); C90.01 Multiple myeloma in remission
CPT/HCPCS: 36415; 80053; 82784; 82728; 83540; 83550; 83883; 84165; 85025

== ENCOUNTER 2022-06-23 13:35 | Outpatient (CLI) | payer MEDICARE, OTHER, SELFPAY ==
[2022-06-23 12:19] LABS: Abs Immature Grans 0.04 10^3/uL (0.0-0.06); Absolute Basophil Count 0.05 10^3/uL (0.0-0.2); Absolute Eosinophil Count 0.21 10^3/uL (0.0-0.7); Absolute Lymphocyte Count 1.04 10^3/uL (1.2-3.4); Absolute Monocyte Count 0.76 10^3/uL (0.1-0.8); Absolute Neutrophil Count 5.28 10^3/uL (1.2-6.7); Basophils % 0.7; Eosinophils % 2.8; HCT 39.8 % (40.0-50.0); HGB 12.8 g/dL (13.5-17.5); Immature Grans % 0.5; Lymphocytes % 14.1; MCH 28.6 pg (27.0-33.0); MCHC 32.2 % (32.0-36.0); MCV 89 fL (80-95); MPV 9.8 fL (8.0-11.0); Monocytes % 10.3; Neutrophils % 71.6; Platelet Count 227 10^3/uL (130-400); RBC 4.48 10^6/uL (4.36-5.78); RDW 15.3 % (11.8-14.1); RDW-SD 49.9 fL; WBC 7.38 10^3/uL (4.4-10.8)
[2022-06-23 12:49] LABS: Iron 37 ug/dL (65-175); Total Iron Binding Capacity 276 ug/dL (250-450); Transferrin Sat 13 % (20-55)
[2022-06-23 13:00] LABS: ALT 26 U/L (16-63); AST 15 U/L (15-37); Alkaline Phosphatase 49 U/L (46-116); Anion Gap 6.6 mmol/L (3-11); BUN 26 mg/dL (7-18); Bilirubin, Total 0.4 mg/dL (0.2-1.0); CO2 30.4 mmol/L (21.0-32.0); CREATININE 1.5 mg/dL (0.70-1.30); Calcium 8.6 mg/dL (8.5-10.1); Chloride 102 mmol/L (98-107); Estimated GFR 45.34 (mL/min/1.73m2); Ferritin 75 ng/mL (26-388); Glucose 108 mg/dL (74-106); Potassium 4.6 mmol/L (3.5-5.1); Sodium 139 mmol/L (136-145); Total Protein 6.2 g/dL (6.4-8.2)
[2022-06-24 10:33] LABS: IgA 36 mg/dL (85-499); IgG 310 mg/dL (610-1,616); IgM 12 mg/dL (35-242); Kappa Free Light Chain 0.99 mg/dL (0.33-1.94); Lambda Free Light Chain 0.84 mg/dL (0.57-2.63)
[2022-06-24 12:21] LABS: Albumin 60.1 % (55.8-66.1); Albumin g/dL 3.3 g/dL (3.6-5.2); Comment (See Note); Total Protein 5.5 g/dL (6.3-8.2)
== END 2022-06-23 13:36 | disposition home or self-care (01) ==
LOC: LBO 13:45
PROVIDERS: PCP Family Medicine; Visit Provider Internal Medicine Hematology & Oncology
DX: C90.01 Multiple myeloma in remission (principal); D64.9 Anemia, unspecified
CPT/HCPCS: 36415; 80053; 82784; 82728; 83540; 83550; 83883; 84165; 85025

== ENCOUNTER 2022-07-21 02:20 | Outpatient (CLI) | payer MEDICARE, OTHER, SELFPAY ==
[2022-07-21 10:17] LABS: Abs Immature Grans 0.03 10^3/uL (0.0-0.06); Absolute Basophil Count 0.05 10^3/uL (0.0-0.2); Absolute Eosinophil Count 0.12 10^3/uL (0.0-0.7); Absolute Lymphocyte Count 0.74 10^3/uL (1.2-3.4); Absolute Neutrophil Count 6.03 10^3/uL (1.2-6.7); Basophils % 0.6; Eosinophils % 1.5; HCT 39.4 % (40.0-50.0); HGB 12.5 g/dL (13.5-17.5); Immature Grans % 0.4; Lymphocytes % 9.5; MCH 28.1 pg (27.0-33.0); MCHC 31.7 % (32.0-36.0); MCV 89 fL (80-95); MPV 10.1 fL (8.0-11.0); Monocytes % 10.3; Neutrophils % 77.7; Platelet Count 289 10^3/uL (130-400); RBC 4.45 10^6/uL (4.36-5.78); RDW-SD 49.1 fL; WBC 7.77 10^3/uL (4.4-10.8)
[2022-07-21 10:52] LABS: ALT 18 U/L (16-63); AST 15 U/L (15-37); Albumin 3.2 g/dL (3.4-5.0); Alkaline Phosphatase 53 U/L (46-116); Anion Gap 7.5 mmol/L (3-11); BUN 26 mg/dL (7-18); Bilirubin, Total 0.3 mg/dL (0.2-1.0); CO2 29.5 mmol/L (21.0-32.0); CREATININE 1.4 mg/dL (0.70-1.30); Calcium 8.5 mg/dL (8.5-10.1); Chloride 105 mmol/L (98-107); Estimated GFR 49.25 (mL/min/1.73m2); Ferritin 40 ng/mL (26-388); Glucose 114 mg/dL (74-106); Potassium 4.1 mmol/L (3.5-5.1); Sodium 142 mmol/L (136-145); Total Protein 6.4 g/dL (6.4-8.2)
[2022-07-21 10:55] LABS: Iron 26 ug/dL (65-175); Total Iron Binding Capacity 324 ug/dL (250-450); Transferrin Sat 8 % (20-55)
[2022-07-22 09:35] LABS: IgA 39 mg/dL (85-499); IgG 307 mg/dL (610-1,616); IgM <12 mg/dL (35-242); Kappa Free Light Chain 1.24 mg/dL (0.33-1.94); Lambda Free Light Chain 0.99 mg/dL (0.57-2.63)
[2022-07-22 15:03] LABS: Albumin 59.1 % (55.8-66.1); Albumin g/dL 3.4 g/dL (3.6-5.2); Comment (See Note); Total Protein 5.7 g/dL (6.3-8.2)
== END 2022-07-21 02:21 | disposition home or self-care (01) ==
PROVIDERS: PCP Family Medicine; Visit Provider Internal Medicine Hematology & Oncology
DX: C90.01 Multiple myeloma in remission (principal); D64.9 Anemia, unspecified
CPT/HCPCS: 36415; 80053; 82784; 82728; 83540; 83550; 83883; 84165; 85025

== ENCOUNTER 2022-08-18 13:01 | Outpatient (CLI) | payer MEDICARE, OTHER, SELFPAY ==
[2022-08-18 13:17] LABS: Abs Immature Grans 0.03 10^3/uL (0.0-0.06); Absolute Basophil Count 0.05 10^3/uL (0.0-0.2); Absolute Eosinophil Count 0.28 10^3/uL (0.0-0.7); Absolute Lymphocyte Count 0.97 10^3/uL (1.2-3.4); Absolute Monocyte Count 0.74 10^3/uL (0.1-0.8); Absolute Neutrophil Count 3.94 10^3/uL (1.2-6.7); Basophils % 0.8; Eosinophils % 4.7; HCT 35.4 % (40.0-50.0); HGB 11.1 g/dL (13.5-17.5); Immature Grans % 0.5; Lymphocytes % 16.1; MCH 27.6 pg (27.0-33.0); MCHC 31.4 % (32.0-36.0); MCV 88 fL (80-95); MPV 9.7 fL (8.0-11.0); Monocytes % 12.3; Neutrophils % 65.6; Platelet Count 247 10^3/uL (130-400); RBC 4.02 10^6/uL (4.36-5.78); RDW 14.9 % (11.8-14.1); RDW-SD 48.2 fL; WBC 6.01 10^3/uL (4.4-10.8)
[2022-08-18 13:50] LABS: ALT 14 U/L (16-63); AST 17 U/L (15-37); Albumin 2.9 g/dL (3.4-5.0); Alkaline Phosphatase 52 U/L (46-116); Anion Gap 8.2 mmol/L (3-11); BUN 21 mg/dL (7-18); Bilirubin, Total 0.3 mg/dL (0.2-1.0); CO2 26.8 mmol/L (21.0-32.0); CREATININE 1.6 mg/dL (0.70-1.30); Calcium 8.3 mg/dL (8.5-10.1); Chloride 105 mmol/L (98-107); Estimated GFR 41.96 (mL/min/1.73m2); Ferritin 60 ng/mL (26-388); Glucose 171 mg/dL (74-106); Potassium 3.7 mmol/L (3.5-5.1); Sodium 140 mmol/L (136-145); Total Protein 5.9 g/dL (6.4-8.2)
[2022-08-18 13:58] LABS: Iron 25 ug/dL (65-175); Total Iron Binding Capacity 296 ug/dL (250-450); Transferrin Sat 8 % (20-55)
[2022-08-19 10:34] LABS: IgA 41 mg/dL (85-499); IgG 311 mg/dL (610-1616); IgM 12 mg/dL (35-242); Kappa Free Light Chain 1.74 mg/dL (0.33-1.94); Lambda Free Light Chain 1.25 mg/dL (0.57-2.63)
[2022-08-19 14:37] LABS: Albumin 57.1 % (55.8-66.1); Albumin g/dL 2.8 g/dL (3.6-5.2); Comment (See Note); Total Protein 4.9 g/dL (6.3-8.2)
== END 2022-08-18 13:02 | disposition home or self-care (01) ==
LOC: LBO 13:02
PROVIDERS: PCP Family Medicine; Visit Provider Internal Medicine Hematology & Oncology
DX: C90.01 Multiple myeloma in remission (principal); D64.9 Anemia, unspecified
CPT/HCPCS: 36415; 80053; 82784; 82728; 83540; 83550; 83883; 84165; 85025

== ENCOUNTER 2022-09-08 03:13 | Outpatient (RCR) | payer MEDICARE, OTHER, SELFPAY | END 2022-09-08 23:59 | disposition home or self-care (01) | LOC: INF 03:13 | PROVIDERS: PCP Family Medicine; Visit Provider Nurse Practitioner Family | DX: C90.00 Multiple myeloma not having achieved remission (principal) | CPT/HCPCS: 96372; Q0221 ==

== ENCOUNTER 2022-09-08 12:09 | Outpatient (CLI) | payer MEDICARE, OTHER, SELFPAY ==
[2022-09-08 12:14] LABS: Abs Immature Grans 0.09 10^3/uL (0.0-0.06); Absolute Basophil Count 0.06 10^3/uL (0.0-0.2); Absolute Eosinophil Count 1.12 10^3/uL (0.0-0.7); Absolute Lymphocyte Count 1.01 10^3/uL (1.2-3.4); Absolute Monocyte Count 0.96 10^3/uL (0.1-0.8); Absolute Neutrophil Count 6.05 10^3/uL (1.2-6.7); Basophils % 0.6; Eosinophils % 12.1; HCT 32.8 % (40.0-50.0); HGB 10.1 g/dL (13.5-17.5); Lymphocytes % 10.9; MCH 26.3 pg (27.0-33.0); MCHC 30.8 % (32.0-36.0); MCV 85 fL (80-95); MPV 9.3 fL (8.0-11.0); Monocytes % 10.3; Neutrophils % 65.1; Platelet Count 351 10^3/uL (130-400); RBC 3.84 10^6/uL (4.36-5.78); RDW 14.6 % (11.8-14.1); WBC 9.29 10^3/uL (4.4-10.8)
[2022-09-08 12:32] LABS: Iron 21 ug/dL (65-175); Total Iron Binding Capacity 281 ug/dL (250-450); Transferrin Sat 7 % (20-55)
[2022-09-08 12:57] LABS: ALT 19 U/L (16-63); AST 15 U/L (15-37); Albumin 2.8 g/dL (3.4-5.0); Alkaline Phosphatase 54 U/L (46-116); Anion Gap 7.9 mmol/L (3-11); BUN 33 mg/dL (7-18); Bilirubin, Total 0.4 mg/dL (0.2-1.0); CO2 27.1 mmol/L (21.0-32.0); CREATININE 1.8 mg/dL (0.70-1.30); Calcium 8.9 mg/dL (8.5-10.1); Chloride 99 mmol/L (98-107); Estimated GFR 36.43 (mL/min/1.73m2); Ferritin 96 ng/mL (26-388); Glucose 160 mg/dL (74-106); Potassium 4.1 mmol/L (3.5-5.1); Sodium 134 mmol/L (136-145); Total Protein 6.3 g/dL (6.4-8.2)
[2022-09-09 09:55] LABS: IgA 41 mg/dL (85-499); IgG 302 mg/dL (610-1616); IgM 12 mg/dL (35-242); Kappa Free Light Chain 1.41 mg/dL (0.33-1.94); Lambda Free Light Chain 0.95 mg/dL (0.57-2.63)
[2022-09-09 14:38] LABS: Albumin 54.1 % (55.8-66.1); Albumin g/dL 2.8 g/dL (3.6-5.2); Comment (See Note); Total Protein 5.1 g/dL (6.3-8.2)
== END 2022-09-08 12:10 | disposition home or self-care (01) ==
LOC: LBO 12:11
PROVIDERS: PCP Family Medicine; Visit Provider Internal Medicine Hematology & Oncology
DX: C90.01 Multiple myeloma in remission (principal); D64.9 Anemia, unspecified
CPT/HCPCS: 36415; 80053; 82784; 96372; Q0221; 82728; 83540; 83550; 83883; 84165; 85025

== ENCOUNTER 2023-02-23 12:19 | Outpatient (CLI) | payer MEDICARE, OTHER, SELFPAY ==
[2023-02-23 11:20] LABS: Abs Immature Grans 0.03 10^3/uL (0.0-0.06); Absolute Basophil Count 0.05 10^3/uL (0.0-0.2); Absolute Eosinophil Count 0.16 10^3/uL (0.0-0.7); Absolute Lymphocyte Count 0.96 10^3/uL (1.2-3.4); Absolute Monocyte Count 0.89 10^3/uL (0.1-0.8); Absolute Neutrophil Count 5.98 10^3/uL (1.2-6.7); Basophils % 0.6; HCT 39.9 % (40.0-50.0); HGB 12.9 g/dL (13.5-17.5); Immature Grans % 0.4; Lymphocytes % 11.9; MCH 27.9 pg (27.0-33.0); MCHC 32.3 % (32.0-36.0); MCV 86 fL (80-95); MPV 9.5 fL (8.0-11.0); Neutrophils % 74.1; Platelet Count 352 10^3/uL (130-400); RBC 4.62 10^6/uL (4.36-5.78); RDW-SD 47.7 fL; WBC 8.07 10^3/uL (4.4-10.8)
[2023-02-23 11:49] LABS: ALT 19 U/L (16-63); AST 14 U/L (15-37); Albumin 3.5 g/dL (3.4-5.0); Alkaline Phosphatase 66 U/L (46-116); Anion Gap 8.6 mmol/L (3-11); BUN 28 mg/dL (7-18); Bilirubin, Total 0.5 mg/dL (0.2-1.0); CO2 30.4 mmol/L (21.0-32.0); CREATININE 1.8 mg/dL (0.70-1.30); Calcium 8.8 mg/dL (8.5-10.1); Chloride 102 mmol/L (98-107); Estimated GFR 36.43 (mL/min/1.73m2); Ferritin 88 ng/mL (26-388); Glucose 127 mg/dL (74-106); Sodium 141 mmol/L (136-145); Total Protein 6.9 g/dL (6.4-8.2)
[2023-02-23 11:51] LABS: Iron 35 ug/dL (65-175); Total Iron Binding Capacity 287 ug/dL (250-450); Transferrin Sat 12 % (20-55)
[2023-02-23 12:37] LABS: Lab Add On Test DONE
[2023-02-23 12:55] LABS: Hemoglobin A1C 6.3 % (<5.7)
[2023-02-24 09:54] LABS: IgA 45 mg/dL (85-499); IgG 336 mg/dL (610-1616); IgM 15 mg/dL (35-242); Kappa Free Light Chain 1.31 mg/dL (0.33-1.94); Lambda Free Light Chain 0.95 mg/dL (0.57-2.63)
[2023-02-24 13:02] LABS: Albumin g/dL 3.5 g/dL (3.6-5.2); Comment (See Note)
== END 2023-02-23 12:20 | disposition home or self-care (01) ==
LOC: LBO 12:23
PROVIDERS: PCP Family Medicine; Visit Provider Internal Medicine Hematology & Oncology
DX: C90.01 Multiple myeloma in remission (principal); D64.9 Anemia, unspecified; E11.9 Type 2 diabetes mellitus without complications
CPT/HCPCS: 36415; 80053; 82784; 82728; 83036; 83540; 83550; 83883; 84165; 85025

== ENCOUNTER 2023-03-23 03:26 | Outpatient (CLI) | payer MEDICARE, OTHER, SELFPAY ==
[2023-03-23 11:26] LABS: Abs Immature Grans 0.04 10^3/uL (0.0-0.06); Absolute Basophil Count 0.03 10^3/uL (0.0-0.2); Absolute Eosinophil Count 0.32 10^3/uL (0.0-0.7); Absolute Lymphocyte Count 0.94 10^3/uL (1.2-3.4); Absolute Neutrophil Count 6.12 10^3/uL (1.2-6.7); Basophils % 0.4; Eosinophils % 3.8; HGB 12.2 g/dL (13.5-17.5); Immature Grans % 0.5; Lymphocytes % 11.1; MCH 27.7 pg (27.0-33.0); MCHC 32.1 % (32.0-36.0); MCV 86 fL (80-95); MPV 9.4 fL (8.0-11.0); Monocytes % 11.8; Neutrophils % 72.4; Platelet Count 256 10^3/uL (130-400); RBC 4.41 10^6/uL (4.36-5.78); RDW 14.8 % (11.8-14.1); RDW-SD 46.5 fL; WBC 8.45 10^3/uL (4.4-10.8)
[2023-03-23 11:58] LABS: ALT 22 U/L (16-63); AST 19 U/L (15-37); Albumin 3.1 g/dL (3.4-5.0); Alkaline Phosphatase 60 U/L (46-116); Anion Gap 6.8 mmol/L (3-11); BUN 33 mg/dL (7-18); Bilirubin, Total 0.5 mg/dL (0.2-1.0); CO2 29.2 mmol/L (21.0-32.0); CREATININE 1.6 mg/dL (0.70-1.30); Calcium 8.9 mg/dL (8.5-10.1); Chloride 103 mmol/L (98-107); Estimated GFR 41.96 (mL/min/1.73m2); Ferritin 93 ng/mL (26-388); Glucose 111 mg/dL (74-106); Potassium 4.1 mmol/L (3.5-5.1); Sodium 139 mmol/L (136-145); Total Protein 6.6 g/dL (6.4-8.2)
[2023-03-23 12:02] LABS: Iron 26 ug/dL (65-175); Total Iron Binding Capacity 266 ug/dL (250-450); Transferrin Sat 10 % (20-55)
[2023-03-24 09:17] LABS: IgA 42 mg/dL (85-499); IgG 320 mg/dL (610-1616); IgM 13 mg/dL (35-242); Kappa Free Light Chain 1.16 mg/dL (0.33-1.94); Lambda Free Light Chain 0.75 mg/dL (0.57-2.63)
[2023-03-24 12:38] LABS: Albumin 58.2 % (55.8-66.1); Albumin g/dL 3.3 g/dL (3.6-5.2); Comment (See Note); Total Protein 5.7 g/dL (6.3-8.2)
== END 2023-03-23 03:27 | disposition home or self-care (01) ==
PROVIDERS: PCP Family Medicine; Visit Provider Internal Medicine Hematology & Oncology
DX: C90.00 Multiple myeloma not having achieved remission (principal); N28.9 Disorder of kidney and ureter, unspecified; D50.0 Iron deficiency anemia secondary to blood loss (chronic)
CPT/HCPCS: 36415; 80053; 82784; 82728; 83540; 83550; 83883; 84165; 85025

== ENCOUNTER 2023-04-20 02:40 | Outpatient (CLI) | payer MEDICARE, OTHER, SELFPAY ==
[2023-04-20 12:07] LABS: Abs Immature Grans 0.06 10^3/uL (0.0-0.06); Absolute Basophil Count 0.06 10^3/uL (0.0-0.2); Absolute Eosinophil Count 0.24 10^3/uL (0.0-0.7); Absolute Lymphocyte Count 1.08 10^3/uL (1.2-3.4); Absolute Monocyte Count 0.86 10^3/uL (0.1-0.8); Absolute Neutrophil Count 5.36 10^3/uL (1.2-6.7); Basophils % 0.8; Eosinophils % 3.1; HCT 37.6 % (40.0-50.0); HGB 12.1 g/dL (13.5-17.5); Immature Grans % 0.8; Lymphocytes % 14.1; MCH 27.6 pg (27.0-33.0); MCHC 32.2 % (32.0-36.0); MCV 86 fL (80-95); MPV 9.7 fL (8.0-11.0); Monocytes % 11.2; Platelet Count 291 10^3/uL (130-400); RBC 4.38 10^6/uL (4.36-5.78); RDW 14.7 % (11.8-14.1); RDW-SD 46.7 fL; WBC 7.66 10^3/uL (4.4-10.8)
[2023-04-20 12:27] LABS: ALT 15 U/L (16-63); AST 19 U/L (15-37); Albumin 3.3 g/dL (3.4-5.0); Alkaline Phosphatase 66 U/L (46-116); Anion Gap 6.6 mmol/L (3-11); BUN 23 mg/dL (7-18); Bilirubin, Total 0.5 mg/dL (0.2-1.0); CO2 30.4 mmol/L (21.0-32.0); CREATININE 1.7 mg/dL (0.70-1.30); Calcium 8.7 mg/dL (8.5-10.1); Chloride 107 mmol/L (98-107); Estimated GFR 39.02 (mL/min/1.73m2); Ferritin 74 ng/mL (26-388); Glucose 118 mg/dL (74-106); Potassium 3.7 mmol/L (3.5-5.1); Sodium 144 mmol/L (136-145); Total Protein 6.5 g/dL (6.4-8.2)
[2023-04-20 12:47] LABS: Iron 32 ug/dL (65-175); Total Iron Binding Capacity 280 ug/dL (250-450); Transferrin Sat 11 % (20-55)
[2023-04-21 10:14] LABS: IgA 48 mg/dL (85-499); IgG 342 mg/dL (610-1616); IgM 16 mg/dL (35-242); Kappa Free Light Chain 1.52 mg/dL (0.33-1.94); Lambda Free Light Chain 0.98 mg/dL (0.57-2.63)
[2023-04-21 14:00] LABS: Albumin g/dL 3.5 g/dL (3.6-5.2); Comment (See Note)
== END 2023-04-20 02:41 | disposition home or self-care (01) ==
PROVIDERS: PCP Family Medicine; Visit Provider Internal Medicine Hematology & Oncology
DX: C90.00 Multiple myeloma not having achieved remission (principal); D50.0 Iron deficiency anemia secondary to blood loss (chronic); N28.9 Disorder of kidney and ureter, unspecified
CPT/HCPCS: 36415; 80053; 82784; 82728; 83540; 83550; 83883; 84165; 85025

== ENCOUNTER 2023-05-18 08:47 | Outpatient (CLI) | payer MEDICARE, OTHER, SELFPAY ==
[2023-05-18 09:04] LABS: Abs Immature Grans 0.04 10^3/uL (0.0-0.06); Absolute Basophil Count 0.05 10^3/uL (0.0-0.2); Absolute Eosinophil Count 0.33 10^3/uL (0.0-0.7); Absolute Lymphocyte Count 1.07 10^3/uL (1.2-3.4); Absolute Monocyte Count 0.95 10^3/uL (0.1-0.8); Absolute Neutrophil Count 5.48 10^3/uL (1.2-6.7); Basophils % 0.6; Eosinophils % 4.2; HCT 36.8 % (40.0-50.0); HGB 11.7 g/dL (13.5-17.5); Immature Grans % 0.5; Lymphocytes % 13.5; MCH 27.1 pg (27.0-33.0); MCHC 31.8 % (32.0-36.0); MCV 85 fL (80-95); MPV 9.4 fL (8.0-11.0); Neutrophils % 69.2; Platelet Count 269 10^3/uL (130-400); RBC 4.32 10^6/uL (4.36-5.78); RDW 14.9 % (11.8-14.1); WBC 7.92 10^3/uL (4.4-10.8)
[2023-05-18 09:27] LABS: ALT 14 U/L (16-63); AST 12 U/L (15-37); Albumin 3.2 g/dL (3.4-5.0); Alkaline Phosphatase 65 U/L (46-116); Anion Gap 10.3 mmol/L (3-11); BUN 30 mg/dL (7-18); Bilirubin, Total 0.5 mg/dL (0.2-1.0); CO2 25.7 mmol/L (21.0-32.0); CREATININE 1.9 mg/dL (0.70-1.30); Calcium 8.5 mg/dL (8.5-10.1); Chloride 105 mmol/L (98-107); Estimated GFR 34.14 (mL/min/1.73m2); Ferritin 76 ng/mL (26-388); Glucose 159 mg/dL (74-106); Potassium 4.1 mmol/L (3.5-5.1); Sodium 141 mmol/L (136-145); Total Protein 6.3 g/dL (6.4-8.2)
[2023-05-18 09:29] LABS: Iron 27 ug/dL (65-175); Total Iron Binding Capacity 264 ug/dL (250-450); Transferrin Sat 10 % (20-55)
[2023-05-19 09:21] LABS: Kappa Free Light Chain 1.49 mg/dL (0.33-1.94); Lambda Free Light Chain 1.08 mg/dL (0.57-2.63)
[2023-05-19 11:50] LABS: IgA 42 mg/dL (85-499); IgG 322 mg/dL (610-1616); IgM 16 mg/dL (35-242)
[2023-05-19 13:24] LABS: Albumin 59.3 % (55.8-66.1); Albumin g/dL 3.5 g/dL (3.6-5.2); Comment (See Note); Total Protein 5.9 g/dL (6.3-8.2)
== END 2023-05-18 08:48 | disposition home or self-care (01) ==
LOC: LBO 08:49
PROVIDERS: PCP Family Medicine; Visit Provider Internal Medicine Hematology & Oncology
DX: D50.0 Iron deficiency anemia secondary to blood loss (chronic) (principal); C90.00 Multiple myeloma not having achieved remission; N28.9 Disorder of kidney and ureter, unspecified
CPT/HCPCS: 36415; 80053; 82784; 82728; 83540; 83550; 83883; 84165; 85025

== ENCOUNTER 2023-07-13 03:18 | Outpatient (CLI) | payer MEDICARE, OTHER, SELFPAY ==
[2023-07-13 10:07] LABS: Abs Immature Grans 0.05 10^3/uL (0.0-0.06); Absolute Basophil Count 0.06 10^3/uL (0.0-0.2); Absolute Eosinophil Count 0.36 10^3/uL (0.0-0.7); Absolute Lymphocyte Count 0.88 10^3/uL (1.2-3.4); Absolute Monocyte Count 0.83 10^3/uL (0.1-0.8); Absolute Neutrophil Count 6.75 10^3/uL (1.2-6.7); Basophils % 0.7; HCT 36.5 % (40.0-50.0); HGB 11.4 g/dL (13.5-17.5); Immature Grans % 0.6; Lymphocytes % 9.9; MCH 26.3 pg (27.0-33.0); MCHC 31.2 % (32.0-36.0); MCV 84 fL (80-95); MPV 9.3 fL (8.0-11.0); Monocytes % 9.3; Neutrophils % 75.5; Platelet Count 389 10^3/uL (130-400); RBC 4.33 10^6/uL (4.36-5.78); WBC 8.93 10^3/uL (4.4-10.8)
[2023-07-13 10:37] LABS: ALT 19 U/L (16-63); AST 12 U/L (15-37); Albumin 3.2 g/dL (3.4-5.0); Alkaline Phosphatase 68 U/L (46-116); Anion Gap 10.9 mmol/L (3-11); BUN 28 mg/dL (7-18); Bilirubin, Total 0.4 mg/dL (0.2-1.0); CO2 25.1 mmol/L (21.0-32.0); CREATININE 1.9 mg/dL (0.70-1.30); Calcium 9.4 mg/dL (8.5-10.1); Chloride 102 mmol/L (98-107); Estimated GFR 33.93 (mL/min/1.73m2); Ferritin 129 ng/mL (26-388); Glucose 144 mg/dL (74-106); Potassium 4.2 mmol/L (3.5-5.1); Sodium 138 mmol/L (136-145); Total Protein 6.8 g/dL (6.4-8.2)
[2023-07-13 11:23] LABS: Iron 29 ug/dL (65-175); Total Iron Binding Capacity 269 ug/dL (250-450); Transferrin Sat 11 % (20-55)
[2023-07-14 10:48] LABS: IgA 52 mg/dL (85-499); IgG 356 mg/dL (610-1616); IgM 15 mg/dL (35-242); Kappa Free Light Chain 1.52 mg/dL (0.33-1.94); Lambda Free Light Chain 1.03 mg/dL (0.57-2.63)
[2023-07-14 13:25] LABS: Albumin 56.6 % (55.8-66.1); Albumin g/dL 3.4 g/dL (3.6-5.2); Comment (See Note)
== END 2023-07-13 03:19 | disposition home or self-care (01) ==
LOC: LBO 03:18
PROVIDERS: PCP Family Medicine; Visit Provider Internal Medicine Hematology & Oncology
DX: C90.00 Multiple myeloma not having achieved remission (principal); N28.9 Disorder of kidney and ureter, unspecified; D50.0 Iron deficiency anemia secondary to blood loss (chronic)
CPT/HCPCS: 36415; 80053; 82784; 82728; 83540; 83550; 83883; 84165; 85025

== ENCOUNTER 2023-08-10 05:26 | Outpatient (CLI) | payer MEDICARE, OTHER, SELFPAY ==
[2023-08-10 12:21] LABS: Abs Immature Grans 0.06 10^3/uL (0.0-0.06); Absolute Basophil Count 0.09 10^3/uL (0.0-0.2); Absolute Eosinophil Count 0.91 10^3/uL (0.0-0.7); Absolute Lymphocyte Count 1.07 10^3/uL (1.2-3.4); Absolute Monocyte Count 0.86 10^3/uL (0.1-0.8); Absolute Neutrophil Count 6.78 10^3/uL (1.2-6.7); Basophils % 0.9; Eosinophils % 9.3; HCT 36.3 % (40.0-50.0); HGB 11.3 g/dL (13.5-17.5); Immature Grans % 0.6; MCH 26.3 pg (27.0-33.0); MCHC 31.1 % (32.0-36.0); MCV 84 fL (80-95); Monocytes % 8.8; Neutrophils % 69.4; Platelet Count 461 10^3/uL (130-400); RDW 16.2 % (11.8-14.1); RDW-SD 50.1 fL; WBC 9.77 10^3/uL (4.4-10.8)
[2023-08-10 12:46] LABS: Iron 18 ug/dL (65-175); Total Iron Binding Capacity 240 ug/dL (250-450); Transferrin Sat 8 % (20-55)
[2023-08-10 12:50] LABS: ALT 14 U/L (16-63); AST 11 U/L (15-37); Albumin 3.1 g/dL (3.4-5.0); Alkaline Phosphatase 64 U/L (46-116); Anion Gap 12.5 mmol/L (3-11); BUN 24 mg/dL (7-18); Bilirubin, Total 0.4 mg/dL (0.2-1.0); CO2 25.5 mmol/L (21.0-32.0); CREATININE 1.8 mg/dL (0.70-1.30); Calcium 8.9 mg/dL (8.5-10.1); Chloride 101 mmol/L (98-107); Estimated GFR 36.21 (mL/min/1.73m2); Ferritin 177 ng/mL (26-388); Glucose 146 mg/dL (74-106); Sodium 139 mmol/L (136-145); Total Protein 6.7 g/dL (6.4-8.2)
[2023-08-11 08:52] LABS: IgA 58 mg/dL (85-499); IgG 357 mg/dL (610-1616); IgM 25 mg/dL (35-242); Lambda Free Light Chain 1.07 mg/dL (0.57-2.63)
[2023-08-11 13:27] LABS: Albumin 52.8 % (55.8-66.1); Albumin g/dL 3.2 g/dL (3.6-5.2)
[2023-08-11 15:59] LABS: Comment (See Note)
== END 2023-08-10 05:27 | disposition home or self-care (01) ==
PROVIDERS: PCP Family Medicine; Visit Provider Internal Medicine Hematology & Oncology
DX: C90.00 Multiple myeloma not having achieved remission (principal); N28.9 Disorder of kidney and ureter, unspecified; D50.0 Iron deficiency anemia secondary to blood loss (chronic)
CPT/HCPCS: 36415; 80053; 82784; 82728; 83540; 83550; 83883; 84165; 85025

== ENCOUNTER 2023-09-28 10:34 | Outpatient (CLI) | payer MEDICARE, OTHER, SELFPAY ==
[2023-09-28 09:12] LABS: Abs Immature Grans 0.06 10^3/uL (0.0-0.06); Absolute Basophil Count 0.07 10^3/uL (0.0-0.2); Absolute Monocyte Count 1.19 10^3/uL (0.1-0.8); Basophils % 0.5; Eosinophils % 0.8; HCT 30.7 % (40.0-50.0); HGB 9.5 g/dL (13.5-17.5); Immature Grans % 0.5; Lymphocytes % 7.6; MCH 26.5 pg (27.0-33.0); MCHC 30.9 % (32.0-36.0); MCV 86 fL (80-95); Neutrophils % 81.6; Platelet Count 251 10^3/uL (130-400); RBC 3.59 10^6/uL (4.36-5.78); RDW 18.1 % (11.8-14.1); RDW-SD 56.9 fL; WBC 13.18 10^3/uL (4.4-10.8)
[2023-09-28 09:13] LABS: Absolute Eosinophil Count 0.11 10^3/uL (0.0-0.7); Absolute Neutrophil Count 10.75 10^3/uL (1.2-6.7)
[2023-09-28 09:36] LABS: Iron 9 ug/dL (65-175); Total Iron Binding Capacity 236 ug/dL (250-450); Transferrin Sat 4 % (20-55)
[2023-09-28 09:49] LABS: ALT 16 U/L (16-63); AST 13 U/L (15-37); Albumin 2.7 g/dL (3.4-5.0); Alkaline Phosphatase 57 U/L (46-116); Anion Gap 8.5 mmol/L (3-11); BUN 26 mg/dL (7-18); Bilirubin, Total 0.4 mg/dL (0.2-1.0); CO2 26.5 mmol/L (21.0-32.0); Calcium 8.8 mg/dL (8.5-10.1); Chloride 102 mmol/L (98-107); Ferritin 207 ng/mL (26-388); Glucose 129 mg/dL (74-106); Sodium 137 mmol/L (136-145); Total Protein 6.3 g/dL (6.4-8.2)
[2023-09-28 15:37] LABS: Lab Add On Test DONE
[2023-09-28 16:19] LABS: Hemoglobin A1C 6.3 % (<5.7)
[2023-09-29 10:10] LABS: IgA 81 mg/dL (85-499); IgG 423 mg/dL (610-1616); IgM 19 mg/dL (35-242); Kappa Free Light Chain 2.47 mg/dL (0.33-1.94)
[2023-09-29 12:51] LABS: Albumin g/dL 3.1 g/dL (3.6-5.2); Total Protein 5.8 g/dL (6.3-8.2)
[2023-09-29 16:36] LABS: Comment (See Note)
== END 2023-09-28 10:35 | disposition home or self-care (01) ==
LOC: LBO 10:35
PROVIDERS: PCP Family Medicine; Visit Provider Internal Medicine Hematology & Oncology
DX: C90.00 Multiple myeloma not having achieved remission (principal); E11.9 Type 2 diabetes mellitus without complications
CPT/HCPCS: 36415; 80053; 82784; 82728; 83036; 83540; 83550; 83883; 84165; 85025

== ENCOUNTER 2023-10-26 10:42 | Outpatient (CLI) | payer MEDICARE, OTHER, SELFPAY ==
[2023-10-26 10:06] LABS: Abs Immature Grans 0.08 10^3/uL (0.0-0.06); Absolute Basophil Count 0.06 10^3/uL (0.0-0.2); Absolute Eosinophil Count 0.26 10^3/uL (0.0-0.7); Absolute Lymphocyte Count 1.07 10^3/uL (1.2-3.4); Absolute Monocyte Count 1.03 10^3/uL (0.1-0.8); Absolute Neutrophil Count 7.79 10^3/uL (1.2-6.7); Basophils % 0.6; Eosinophils % 2.5; HCT 35.3 % (40.0-50.0); HGB 10.9 g/dL (13.5-17.5); Immature Grans % 0.8; Lymphocytes % 10.4; MCH 26.2 pg (27.0-33.0); MCHC 30.9 % (32.0-36.0); MCV 85 fL (80-95); MPV 10.4 fL (8.0-11.0); Neutrophils % 75.7; Platelet Count 368 10^3/uL (130-400); RBC 4.16 10^6/uL (4.36-5.78); RDW 17.1 % (11.8-14.1); RDW-SD 53.2 fL; WBC 10.29 10^3/uL (4.4-10.8)
[2023-10-26 10:25] LABS: Iron 24 ug/dL (65-175); Total Iron Binding Capacity 288 ug/dL (250-450); Transferrin Sat 8 % (20-55)
[2023-10-26 10:32] LABS: ALT 19 U/L (16-63); AST 10 U/L (15-37); Albumin 3.1 g/dL (3.4-5.0); Alkaline Phosphatase 59 U/L (46-116); BUN 31 mg/dL (7-18); Bilirubin, Total 0.4 mg/dL (0.2-1.0); CREATININE 1.6 mg/dL (0.70-1.30); Chloride 103 mmol/L (98-107); Ferritin 117 ng/mL (26-388); Glucose 95 mg/dL (74-106); Potassium 5.7 mmol/L (3.5-5.1); Sodium 138 mmol/L (136-145); Total Protein 6.6 g/dL (6.4-8.2)
[2023-10-27 10:17] LABS: IgA 57 mg/dL (85-499); IgG 424 mg/dL (610-1616); IgM 15 mg/dL (35-242); Kappa Free Light Chain 1.76 mg/dL (0.33-1.94); Lambda Free Light Chain 1.08 mg/dL (0.57-2.63)
[2023-10-27 14:04] LABS: Albumin 56.9 % (55.8-66.1); Albumin g/dL 3.5 g/dL (3.6-5.2); Comment (See Note); Total Protein 6.1 g/dL (6.3-8.2)
[2023-10-29 16:35] LABS: Immunotyping, Serum (See Note)
== END 2023-10-26 10:43 | disposition home or self-care (01) ==
LOC: LBO 10:42
PROVIDERS: PCP Family Medicine; Visit Provider Internal Medicine Hematology & Oncology
DX: C90.00 Multiple myeloma not having achieved remission (principal)
CPT/HCPCS: 36415; 80053; 82784; 82728; 83540; 83550; 83883; 84165; 85025; 86320

== ENCOUNTER 2024-02-15 12:47 | Outpatient (CLI) | payer MEDICARE, OTHER, SELFPAY ==
[2024-02-15 12:23] LABS: Abs Immature Grans 0.03 10^3/uL (0.0-0.06); Absolute Basophil Count 0.04 10^3/uL (0.0-0.2); Absolute Eosinophil Count 0.18 10^3/uL (0.0-0.7); Absolute Lymphocyte Count 1.07 10^3/uL (1.2-3.4); Absolute Neutrophil Count 6.13 10^3/uL (1.2-6.7); Basophils % 0.5 %; Eosinophils % 2.2 %; HGB 11.9 g/dL (13.5-17.5); Immature Grans % 0.4 %; Lymphocytes % 12.8 %; MCHC 32.2 % (32.0-36.0); MCV 84 fL (80-95); MPV 10.6 fL (8.0-11.0); Monocytes % 10.8 %; Neutrophils % 73.3 %; Platelet Count 278 10^3/uL (130-400); RDW 15.2 % (11.8-14.1); RDW-SD 46.5 fL; WBC 8.35 10^3/uL (4.4-10.8)
[2024-02-15 13:04] LABS: Iron 36 ug/dL (65-175); Total Iron Binding Capacity 296 ug/dL (250-450); Transferrin Sat 12 % (20-55)
[2024-02-15 13:32] LABS: ALT 16 U/L (16-63); AST 15 U/L (15-37); Albumin 3.7 g/dL (3.4-5.0); Alkaline Phosphatase 60 U/L (46-116); Anion Gap 14.4 mmol/L (3-11); BUN 46 mg/dL (7-18); Bilirubin, Total 0.4 mg/dL (0.2-1.0); CO2 24.6 mmol/L (21.0-32.0); CREATININE 1.7 mg/dL (0.70-1.30); Calcium 9.3 mg/dL (8.5-10.1); Chloride 102 mmol/L (98-107); Estimated GFR 38.78 (mL/min/1.73m2); Ferritin 74 ng/mL (26-388); Glucose 184 mg/dL (74-106); Potassium 4.4 mmol/L (3.5-5.1); Sodium 141 mmol/L (136-145); Total Protein 6.4 g/dL (6.4-8.2)
[2024-02-16 09:25] LABS: IgA 50 mg/dL (85-499); IgG 402 mg/dL (610-1616); IgM 16 mg/dL (35-242); Lambda Free Light Chain 1.12 mg/dL (0.57-2.63)
[2024-02-16 14:29] LABS: Albumin 59.1 % (55.8-66.1); Albumin g/dL 3.7 g/dL (3.6-5.2); Comment (See Note); Total Protein 6.2 g/dL (6.3-8.2)
== END 2024-02-15 12:48 | disposition home or self-care (01) ==
LOC: LBO 12:48
PROVIDERS: PCP Family Medicine; Visit Provider Internal Medicine Hematology & Oncology
DX: D50.0 Iron deficiency anemia secondary to blood loss (chronic) (principal); C90.00 Multiple myeloma not having achieved remission
CPT/HCPCS: 36415; 80053; 82784; 82728; 83540; 83550; 83883; 84165; 85025

== ENCOUNTER 2024-03-14 05:22 | Outpatient (CLI) | payer MEDICARE, OTHER, SELFPAY ==
[2024-03-14 08:57] LABS: Abs Immature Grans 0.09 10^3/uL (0.0-0.06); Absolute Basophil Count 0.05 10^3/uL (0.0-0.2); Absolute Eosinophil Count 0.33 10^3/uL (0.0-0.7); Absolute Lymphocyte Count 1.23 10^3/uL (1.2-3.4); Absolute Neutrophil Count 7.73 10^3/uL (1.2-6.7); Basophils % 0.5 %; Eosinophils % 3.2 %; HCT 37.6 % (40.0-50.0); HGB 11.8 g/dL (13.5-17.5); Immature Grans % 0.9 %; Lymphocytes % 11.8 %; MCH 26.8 pg (27.0-33.0); MCHC 31.4 % (32.0-36.0); MCV 86 fL (80-95); MPV 9.6 fL (8.0-11.0); Monocytes % 9.6 %; Platelet Count 331 10^3/uL (130-400); RDW 14.8 % (11.8-14.1); RDW-SD 46.5 fL; WBC 10.43 10^3/uL (4.4-10.8)
[2024-03-14 09:24] LABS: ALT 23 U/L (16-63); AST 13 U/L (15-37); Albumin 3.2 g/dL (3.4-5.0); Alkaline Phosphatase 63 U/L (46-116); Anion Gap 8.6 mmol/L (3-11); BUN 46 mg/dL (7-18); Bilirubin, Total 0.4 mg/dL (0.2-1.0); CO2 30.4 mmol/L (21.0-32.0); Calcium 8.7 mg/dL (8.5-10.1); Chloride 102 mmol/L (98-107); Ferritin 68 ng/mL (26-388); Glucose 124 mg/dL (74-106); Potassium 4.4 mmol/L (3.5-5.1); Sodium 141 mmol/L (136-145); Total Protein 6.7 g/dL (6.4-8.2)
[2024-03-14 10:36] LABS: Iron 29 ug/dL (65-175); Total Iron Binding Capacity 302 ug/dL (250-450); Transferrin Sat 10 % (20-55)
[2024-03-15 08:51] LABS: IgA 45 mg/dL (85-499); IgG 334 mg/dL (610-1616); IgM 13 mg/dL (35-242); Kappa Free Light Chain 1.09 mg/dL (0.33-1.94); Lambda Free Light Chain 0.92 mg/dL (0.57-2.63)
[2024-03-15 12:43] LABS: Albumin 57.9 % (55.8-66.1); Albumin g/dL 3.5 g/dL (3.6-5.2); Comment (See Note); Total Protein 6.1 g/dL (6.3-8.2)
== END 2024-03-14 05:23 | disposition home or self-care (01) ==
PROVIDERS: PCP Family Medicine; Visit Provider Nurse Practitioner Adult Health
DX: C90.00 Multiple myeloma not having achieved remission (principal)
CPT/HCPCS: 36415; 80053; 82784; 82728; 83540; 83550; 83883; 84165; 85025

== ENCOUNTER 2024-04-11 02:21 | Outpatient (CLI) | payer MEDICARE, OTHER, SELFPAY ==
[2024-04-11 08:52] LABS: Abs Immature Grans 0.04 10^3/uL (0.0-0.06); Absolute Eosinophil Count 0.41 10^3/uL (0.0-0.7); Absolute Lymphocyte Count 1.03 10^3/uL (1.2-3.4); Basophils % 0.3 %; Eosinophils % 3.5 %; HCT 41.9 % (40.0-50.0); HGB 13.1 g/dL (13.5-17.5); Immature Grans % 0.3 %; Lymphocytes % 8.8 %; MCH 26.6 pg (27.0-33.0); MCHC 31.3 % (32.0-36.0); MCV 85 fL (80-95); MPV 10.7 fL (8.0-11.0); Monocytes % 9.3 %; Neutrophils % 77.8 %; Platelet Count 306 10^3/uL (130-400); RBC 4.93 10^6/uL (4.36-5.78); RDW 16.2 % (11.8-14.1); RDW-SD 50.2 fL; WBC 11.66 10^3/uL (4.4-10.8)
[2024-04-11 08:56] LABS: Absolute Basophil Count 0.03 10^3/uL (0.0-0.2); Absolute Monocyte Count 1.08 10^3/uL (0.1-0.8); Absolute Neutrophil Count 9.07 10^3/uL (1.2-6.7)
[2024-04-11 09:23] LABS: ALT 25 U/L (16-63); AST 11 U/L (15-37); Albumin 3.7 g/dL (3.4-5.0); Alkaline Phosphatase 60 U/L (46-116); Anion Gap 9.6 mmol/L (3-11); BUN 51 mg/dL (7-18); Bilirubin, Total 0.45 mg/dL (0.2-1.0); CO2 26.4 mmol/L (21.0-32.0); CREATININE 1.9 mg/dL (0.70-1.30); Calcium 8.9 mg/dL (8.5-10.1); Chloride 106 mmol/L (98-107); Estimated GFR 33.93 (mL/min/1.73m2); Ferritin 35 ng/mL (26-388); Glucose 104 mg/dL (74-106); Potassium 4.3 mmol/L (3.5-5.1); Sodium 142 mmol/L (136-145); Total Protein 6.9 g/dL (6.4-8.2)
[2024-04-11 09:28] LABS: Iron 47 ug/dL (65-175); Total Iron Binding Capacity 341 ug/dL (250-450); Transferrin Sat 14 % (20-55)
[2024-04-12 08:57] LABS: IgA 38 mg/dL (85-499); IgG 357 mg/dL (610-1616); IgM 15 mg/dL (35-242); Kappa Free Light Chain 0.99 mg/dL (0.33-1.94); Lambda Free Light Chain 0.79 mg/dL (0.57-2.63)
[2024-04-16 11:10] LABS: Albumin 61.1 % (55.8-66.1); Albumin g/dL 3.8 g/dL (3.6-5.2); Comment (See Note); Total Protein 6.3 g/dL (6.3-8.2)
== END 2024-04-11 02:22 | disposition home or self-care (01) ==
PROVIDERS: PCP Family Medicine; Visit Provider Nurse Practitioner Adult Health
DX: C90.00 Multiple myeloma not having achieved remission (principal); N28.9 Disorder of kidney and ureter, unspecified
CPT/HCPCS: 36415; 80053; 82784; 82728; 83540; 83550; 83883; 84165; 85025

== ENCOUNTER 2024-05-09 02:34 | Outpatient (CLI) | payer MEDICARE, OTHER, SELFPAY ==
[2024-05-09 09:16] LABS: Abs Immature Grans 0.04 10^3/uL (0.0-0.06); Absolute Basophil Count 0.05 10^3/uL (0.0-0.2); Absolute Eosinophil Count 0.26 10^3/uL (0.0-0.7); Absolute Lymphocyte Count 1.01 10^3/uL (1.2-3.4); Absolute Monocyte Count 1.08 10^3/uL (0.1-0.8); Absolute Neutrophil Count 7.39 10^3/uL (1.2-6.7); Basophils % 0.5 %; Eosinophils % 2.6 %; HCT 40.2 % (40.0-50.0); HGB 12.4 g/dL (13.5-17.5); Immature Grans % 0.4 %; Lymphocytes % 10.3 %; MCH 26.8 pg (27.0-33.0); MCHC 30.8 % (32.0-36.0); MCV 87 fL (80-95); MPV 10.1 fL (8.0-11.0); Neutrophils % 75.2 %; Platelet Count 303 10^3/uL (130-400); RBC 4.63 10^6/uL (4.36-5.78); RDW 16.9 % (11.8-14.1); RDW-SD 53.8 fL; WBC 9.83 10^3/uL (4.4-10.8)
[2024-05-09 09:42] LABS: ALT 24 U/L (16-63); AST 14 U/L (15-37); Albumin 3.4 g/dL (3.4-5.0); Alkaline Phosphatase 66 U/L (46-116); Anion Gap 10.3 mmol/L (3-11); BUN 40 mg/dL (7-18); Bilirubin, Total 0.27 mg/dL (0.2-1.0); CO2 26.7 mmol/L (21.0-32.0); CREATININE 1.9 mg/dL (0.70-1.30); Chloride 104 mmol/L (98-107); Estimated GFR 33.93 (mL/min/1.73m2); Ferritin 30 ng/mL (26-388); Glucose 111 mg/dL (74-106); Potassium 4.3 mmol/L (3.5-5.1); Sodium 141 mmol/L (136-145); Total Protein 6.8 g/dL (6.4-8.2)
[2024-05-09 09:49] LABS: Iron 26 ug/dL (65-175); Total Iron Binding Capacity 330 ug/dL (250-450); Transferrin Sat 8 % (20-55)
[2024-05-10 10:03] LABS: IgA 39 mg/dL (85-499); IgG 321 mg/dL (610-1616); IgM 14 mg/dL (35-242); Kappa Free Light Chain 1.14 mg/dL (0.33-1.94); Lambda Free Light Chain 0.87 mg/dL (0.57-2.63)
[2024-05-10 12:44] LABS: Albumin 59.7 % (55.8-66.1); Albumin g/dL 3.7 g/dL (3.6-5.2); Comment (See Note); Total Protein 6.2 g/dL (6.3-8.2)
== END 2024-05-09 02:35 | disposition home or self-care (01) ==
LOC: LBO 02:34
PROVIDERS: Nurse Practitioner Adult Health; PCP Family Medicine; Visit Provider Internal Medicine Hematology & Oncology
DX: C90.00 Multiple myeloma not having achieved remission (principal); N28.9 Disorder of kidney and ureter, unspecified; D50.0 Iron deficiency anemia secondary to blood loss (chronic)
CPT/HCPCS: 36415; 80053; 82784; 82728; 83540; 83550; 83883; 84165; 85025

== ENCOUNTER 2024-06-13 02:58 | Outpatient (CLI) | payer MEDICARE, OTHER, SELFPAY ==
[2024-06-13 08:26] LABS: Abs Immature Grans 0.05 10^3/uL (0.0-0.06); Absolute Basophil Count 0.06 10^3/uL (0.0-0.2); Absolute Eosinophil Count 0.37 10^3/uL (0.0-0.7); Absolute Lymphocyte Count 1.15 10^3/uL (1.2-3.4); Absolute Monocyte Count 1.13 10^3/uL (0.1-0.8); Absolute Neutrophil Count 6.65 10^3/uL (1.2-6.7); Basophils % 0.6 %; Eosinophils % 3.9 %; HCT 38.5 % (40.0-50.0); HGB 12.2 g/dL (13.5-17.5); Immature Grans % 0.5 %; Lymphocytes % 12.2 %; MCHC 31.7 % (32.0-36.0); MCV 85 fL (80-95); MPV 10.2 fL (8.0-11.0); Neutrophils % 70.8 %; Platelet Count 269 10^3/uL (130-400); RBC 4.52 10^6/uL (4.36-5.78); RDW 15.8 % (11.8-14.1); RDW-SD 49.7 fL; WBC 9.41 10^3/uL (4.4-10.8)
[2024-06-13 08:59] LABS: ALT 19 U/L (16-63); AST 16 U/L (15-37); Albumin 3.4 g/dL (3.4-5.0); Alkaline Phosphatase 64 U/L (46-116); BUN 33 mg/dL (7-18); Bilirubin, Total 0.47 mg/dL (0.2-1.0); CREATININE 1.7 mg/dL (0.70-1.30); Calcium 9.2 mg/dL (8.5-10.1); Chloride 104 mmol/L (98-107); Estimated GFR 38.53 (mL/min/1.73m2); Ferritin 32 ng/mL (26-388); Glucose 100 mg/dL (74-106); Potassium 4.1 mmol/L (3.5-5.1); Sodium 140 mmol/L (136-145); Total Protein 6.8 g/dL (6.4-8.2)
[2024-06-13 09:01] LABS: Iron 28 ug/dL (65-175); Total Iron Binding Capacity 347 ug/dL (250-450); Transferrin Sat 8 % (20-55)
[2024-06-14 09:57] LABS: IgA 42 mg/dL (85-499); IgG 319 mg/dL (610-1616); IgM 21 mg/dL (35-242); Lambda Free Light Chain 0.76 mg/dL (0.57-2.63)
[2024-06-14 13:11] LABS: Albumin 58.4 % (55.8-66.1); Albumin g/dL 3.6 g/dL (3.6-5.2); Total Protein 6.2 g/dL (6.3-8.2)
[2024-06-14 16:11] LABS: Comment (See Note)
== END 2024-06-13 02:59 | disposition home or self-care (01) ==
PROVIDERS: PCP Family Medicine; Visit Provider Nurse Practitioner Adult Health
DX: D50.0 Iron deficiency anemia secondary to blood loss (chronic) (principal); N28.9 Disorder of kidney and ureter, unspecified
CPT/HCPCS: 36415; 80053; 82784; 82728; 83540; 83550; 83883; 84165; 85025

== ENCOUNTER 2024-07-11 02:14 | Outpatient (CLI) | payer MEDICARE, OTHER, SELFPAY ==
[2024-07-11 08:24] LABS: Abs Immature Grans 0.08 10^3/uL (0.0-0.06); Absolute Basophil Count 0.07 10^3/uL (0.0-0.2); Absolute Eosinophil Count 0.38 10^3/uL (0.0-0.7); Absolute Lymphocyte Count 1.45 10^3/uL (1.2-3.4); Absolute Monocyte Count 1.15 10^3/uL (0.1-0.8); Absolute Neutrophil Count 8.08 10^3/uL (1.2-6.7); Basophils % 0.6 %; Eosinophils % 3.4 %; HCT 38.1 % (40.0-50.0); HGB 11.8 g/dL (13.5-17.5); Immature Grans % 0.7 %; Lymphocytes % 12.9 %; MCH 26.4 pg (27.0-33.0); MCV 85 fL (80-95); Monocytes % 10.3 %; Neutrophils % 72.1 %; Platelet Count 379 10^3/uL (130-400); RBC 4.47 10^6/uL (4.36-5.78); RDW 15.8 % (11.8-14.1); WBC 11.21 10^3/uL (4.4-10.8)
[2024-07-11 08:49] LABS: ALT 19 U/L (16-63); AST 15 U/L (15-37); Albumin 3.3 g/dL (3.4-5.0); Alkaline Phosphatase 68 U/L (46-116); Anion Gap 11.6 mmol/L (3-11); BUN 34 mg/dL (7-18); CO2 27.4 mmol/L (21.0-32.0); CREATININE 1.9 mg/dL (0.70-1.30); Chloride 100 mmol/L (98-107); Estimated GFR 33.72 (mL/min/1.73m2); Ferritin 77 ng/mL (26-388); Glucose 108 mg/dL (74-106); Potassium 4.3 mmol/L (3.5-5.1); Sodium 139 mmol/L (136-145); Total Protein 7.1 g/dL (6.4-8.2)
[2024-07-11 09:08] LABS: Iron 40 ug/dL (65-175); Total Iron Binding Capacity 318 ug/dL (250-450); Transferrin Sat 13 % (20-55)
[2024-07-12 09:50] LABS: IgA 72 mg/dL (85-499); IgG 460 mg/dL (610-1616); IgM 35 mg/dL (35-242); Kappa Free Light Chain 3.26 mg/dL (0.33-1.94); Lambda Free Light Chain 2.44 mg/dL (0.57-2.63)
[2024-07-12 14:49] LABS: Albumin g/dL 3.6 g/dL (3.6-5.2); Comment (See Note); Total Protein 6.4 g/dL (6.3-8.2)
== END 2024-07-11 02:15 | disposition home or self-care (01) ==
PROVIDERS: PCP Family Medicine; Visit Provider Nurse Practitioner Adult Health
DX: D50.0 Iron deficiency anemia secondary to blood loss (chronic) (principal); C90.00 Multiple myeloma not having achieved remission; N28.9 Disorder of kidney and ureter, unspecified
CPT/HCPCS: 36415; 80053; 82784; 82728; 83540; 83550; 83883; 84165; 85025

== ENCOUNTER 2024-08-15 03:38 | Outpatient (CLI) | payer MEDICARE, OTHER, SELFPAY ==
[2024-08-15 13:06] LABS: Abs Immature Grans 0.05 10^3/uL (0.0-0.06); Absolute Basophil Count 0.06 10^3/uL (0.0-0.2); Absolute Eosinophil Count 0.16 10^3/uL (0.0-0.7); Absolute Lymphocyte Count 1.18 10^3/uL (1.2-3.4); Absolute Monocyte Count 0.73 10^3/uL (0.1-0.8); Absolute Neutrophil Count 8.47 10^3/uL (1.2-6.7); Basophils % 0.6 %; Eosinophils % 1.5 %; HCT 39.7 % (40.0-50.0); HGB 12.5 g/dL (13.5-17.5); Immature Grans % 0.5 %; Lymphocytes % 11.1 %; MCH 26.9 pg (27.0-33.0); MCHC 31.5 % (32.0-36.0); MCV 85 fL (80-95); MPV 10.4 fL (8.0-11.0); Monocytes % 6.9 %; Neutrophils % 79.4 %; Platelet Count 341 10^3/uL (130-400); RBC 4.65 10^6/uL (4.36-5.78); RDW 16.2 % (11.8-14.1); RDW-SD 49.9 fL; WBC 10.65 10^3/uL (4.4-10.8)
[2024-08-15 13:33] LABS: ALT 17 U/L (16-63); AST 12 U/L (15-37); Albumin 3.5 g/dL (3.4-5.0); Alkaline Phosphatase 64 U/L (46-116); Anion Gap 14.1 mmol/L (3-11); BUN 56 mg/dL (7-18); Bilirubin, Total 0.33 mg/dL (0.2-1.0); CO2 22.9 mmol/L (21.0-32.0); CREATININE 2.5 mg/dL (0.70-1.30); Calcium 9.1 mg/dL (8.5-10.1); Chloride 103 mmol/L (98-107); Estimated GFR 24.26 (mL/min/1.73m2); Ferritin 29 ng/mL (26-388); Glucose 221 mg/dL (74-106); Sodium 140 mmol/L (136-145); Total Protein 7.1 g/dL (6.4-8.2)
[2024-08-15 13:40] LABS: Iron 24 ug/dL (65-175); Total Iron Binding Capacity 316 ug/dL (250-450); Transferrin Sat 8 % (20-55)
[2024-08-16 09:42] LABS: IgA 54 mg/dL (85-499); IgG 444 mg/dL (610-1616); IgM 25 mg/dL (35-242); Kappa Free Light Chain 1.77 mg/dL (0.33-1.94); Lambda Free Light Chain 1.19 mg/dL (0.57-2.63)
[2024-08-16 13:34] LABS: Albumin 60.3 % (55.8-66.1); Albumin g/dL 3.9 g/dL (3.6-5.2); Comment (See Note); Total Protein 6.4 g/dL (6.3-8.2)
== END 2024-08-15 03:39 | disposition home or self-care (01) ==
PROVIDERS: PCP Family Medicine; Visit Provider Nurse Practitioner Adult Health
DX: C90.00 Multiple myeloma not having achieved remission (principal); Z23 Encounter for immunization
CPT/HCPCS: 36415; 80053; 82784; 82728; 83540; 83550; 83883; 84165; 85025

== ENCOUNTER 2025-03-13 02:32 | Outpatient (CLI) | payer MEDICARE, OTHER, SELFPAY ==
[2025-03-13 09:45] LABS: Abs Immature Grans 0.08 10^3/uL (0.0-0.06); Absolute Basophil Count 0.05 10^3/uL (0.0-0.2); Absolute Eosinophil Count 0.32 10^3/uL (0.0-0.7); Absolute Lymphocyte Count 1.47 10^3/uL (1.2-3.4); Absolute Monocyte Count 1.21 10^3/uL (0.1-0.8); Absolute Neutrophil Count 7.44 10^3/uL (1.2-6.7); Basophils % 0.5 %; HCT 35.1 % (40.0-50.0); Immature Grans % 0.8 %; Lymphocytes % 13.9 %; MCH 26.3 pg (27.0-33.0); MCHC 31.3 % (32.0-36.0); MCV 84 fL (80-95); MPV 10.3 fL (8.0-11.0); Monocytes % 11.4 %; Neutrophils % 70.4 %; Platelet Count 330 10^3/uL (130-400); RBC 4.19 10^6/uL (4.36-5.78); RDW-SD 49.1 fL; WBC 10.57 10^3/uL (4.4-10.8)
[2025-03-13 10:10] LABS: ALT 19 U/L (16-63); AST 14 U/L (15-37); Albumin 3.7 g/dL (3.4-5.0); Alkaline Phosphatase 60 U/L (46-116); Anion Gap 12.8 mmol/L (3-11); BUN 78 mg/dL (7-18); Bilirubin, Total 0.4 mg/dL (0.2-1.0); CO2 23.2 mmol/L (21.0-32.0); CREATININE 3.4 mg/dL (0.70-1.30); Calcium 8.7 mg/dL (8.5-10.1); Chloride 105 mmol/L (98-107); Estimated GFR 16.77 (mL/min/1.73m2); Ferritin 79 ng/mL (26-388); Glucose 125 mg/dL (74-106); Potassium 4.5 mmol/L (3.5-5.1); Sodium 141 mmol/L (136-145); Total Protein 7.4 g/dL (6.4-8.2)
[2025-03-13 10:13] LABS: Iron 37 ug/dL (65-175); Total Iron Binding Capacity 312 ug/dL (250-450); Transferrin Sat 12 % (20-55)
[2025-03-14 10:03] LABS: IgA 41 mg/dL (85-499); IgG 383 mg/dL (610-1616); IgM 17 mg/dL (35-242); Kappa Free Light Chain 3.04 mg/dL (0.33-1.94); Lambda Free Light Chain 1.07 mg/dL (0.57-2.63)
[2025-03-14 15:13] LABS: Albumin 60.1 % (55.8-66.1); Comment (See Note); Total Protein 6.6 g/dL (6.3-8.2)
== END 2025-03-13 02:33 | disposition home or self-care (01) ==
LOC: LBO 02:32
PROVIDERS: PCP Family Medicine; Visit Provider Nurse Practitioner Adult Health
DX: C90.01 Multiple myeloma in remission (principal); D50.0 Iron deficiency anemia secondary to blood loss (chronic)
CPT/HCPCS: 36415; 80053; 82784; 82728; 83540; 83550; 83883; 84165; 85025

== ENCOUNTER 2025-04-03 01:28 | Outpatient (CLI) | payer MEDICARE, OTHER, SELFPAY ==
[2025-04-03 09:09] LABS: Abs Immature Grans 0.05 10^3/uL (0.0-0.06); Absolute Basophil Count 0.06 10^3/uL (0.0-0.2); Absolute Eosinophil Count 0.43 10^3/uL (0.0-0.7); Absolute Lymphocyte Count 1.19 10^3/uL (1.2-3.4); Absolute Monocyte Count 0.96 10^3/uL (0.1-0.8); Absolute Neutrophil Count 7.58 10^3/uL (1.2-6.7); Basophils % 0.6 %; Eosinophils % 4.2 %; HCT 32.1 % (40.0-50.0); HGB 10.4 g/dL (13.5-17.5); Immature Grans % 0.5 %; Lymphocytes % 11.6 %; MCHC 32.4 % (32.0-36.0); MCV 83 fL (80-95); MPV 9.7 fL (8.0-11.0); Monocytes % 9.3 %; Neutrophils % 73.8 %; Platelet Count 265 10^3/uL (130-400); RBC 3.85 10^6/uL (4.36-5.78); RDW 15.6 % (11.8-14.1); RDW-SD 47.4 fL; WBC 10.27 10^3/uL (4.4-10.8)
[2025-04-03 09:57] LABS: Iron 32 ug/dL (65-175); Total Iron Binding Capacity 290 ug/dL (250-450); Transferrin Sat 11 % (20-55)
[2025-04-03 10:10] LABS: ALT 23 U/L (16-63); AST 12 U/L (15-37); Albumin 3.6 g/dL (3.4-5.0); Alkaline Phosphatase 65 U/L (46-116); BUN 62 mg/dL (7-18); Bilirubin, Total 0.4 mg/dL (0.2-1.0); CREATININE 3.5 mg/dL (0.70-1.30); Chloride 106 mmol/L (98-107); Ferritin 102 ng/mL (26-388); Glucose 132 mg/dL (74-106); Potassium 4.2 mmol/L (3.5-5.1); Sodium 141 mmol/L (136-145); Total Protein 7.3 g/dL (6.4-8.2)
[2025-04-03 17:43] LABS: Total Protein 6.3 g/dL (6.3-8.2)
[2025-04-04 10:26] LABS: IgA 51 mg/dL (85-499); IgG 391 mg/dL (610-1616); IgM 15 mg/dL (35-242); Kappa Free Light Chain 3.86 mg/dL (0.33-1.94)
[2025-04-04 13:22] LABS: Albumin 57.6 % (55.8-66.1); Albumin g/dL 3.6 g/dL (3.6-5.2); Comment (See Note)
== END 2025-04-03 01:29 | disposition home or self-care (01) ==
LOC: LBO 01:29
PROVIDERS: PCP Family Medicine; Visit Provider Nurse Practitioner Adult Health
DX: C90.01 Multiple myeloma in remission (principal); D50.0 Iron deficiency anemia secondary to blood loss (chronic)
CPT/HCPCS: 36415; 80053; 82784; 82728; 83540; 83550; 83883; 84165; 85025

== ENCOUNTER 2025-05-01 01:12 | Outpatient (CLI) | payer MEDICARE, OTHER, SELFPAY ==
--- NOTE | 2025-05-01 12:15 | DI.US_ITS ---
Exam(s) US RENAL EXAM: US RENAL CLINICAL HISTORY: Worsening renal function,RENAL INSUFFICIENCY,ACUTE ON CHRONIC,MULTIPLE. TECHNIQUE: Chowdhury scale, color and spectral Doppler were used. COMPARISON: No exams were available for comparison FINDINGS: Renal size in cm: Right: 10.7. Left: 13. Echogenicity: Normal. Hydronephrosis: There is marked bilateral hydroureteronephrosis. The dilated ureters are seen for some distance on this examination. Cyst or mass: There are bilateral simple renal cysts. The largest is on the left and measures 4.0 x 4.1 x 4.6 cm. No follow-up is recommended. Nephrolithiasis: There is a 3 mm echogenic focus in the right kidney which may represent a nonobstructing stone. Other findings: None. Bladder:No intraluminal masses are seen. Ureteral jets: Right: Visualized and unremarkable. Left: The left ureteral jet was not visualized on this examination. Prevoid vol:134 cc Postvoid vol:28 cc Prostate: 70 cc Renal color flow: Symmetric and within normal limits. IMPRESSION: 1. There is an enlarged prostate gland. There is a small postvoid urinary bladder volume. 2. Marked bilateral hydroureteronephrosis. A CT scan of the abdomen and pelvis and a nuclear medicine renal scan should be considered for further evaluation. 3. Right nephrolithiasis. Unexpected findings DATA REPOSITORY:
== END 2025-05-01 01:32 ==
LOC: DI 01:12
PROVIDERS: PCP Family Medicine; Visit Provider Family Medicine
DX: N13.30 Unspecified hydronephrosis (principal); N18.9 Chronic kidney disease, unspecified; C90.00 Multiple myeloma not having achieved remission
CPT/HCPCS: 76770

== ENCOUNTER 2025-05-01 02:33 | Outpatient (CLI) | payer MEDICARE, OTHER, SELFPAY ==
[2025-05-01 12:13] LABS: Abs Immature Grans 0.07 10^3/uL (0.0-0.06); HCT 32.0 % (40.0-50.0); HGB 10.4 g/dL (13.5-17.5); Immature Grans % 0.7 %; MCH 27.3 pg (27.0-33.0); MCHC 32.5 % (32.0-36.0); MCV 84 fL (80-95); MPV 10.8 fL (8.0-11.0); Platelet Count 311 10^3/uL (130-400); RBC 3.81 10^6/uL (4.36-5.78); RDW 16.7 % (11.8-14.1); RDW-SD 51.0 fL; WBC 10.12 10^3/uL (4.4-10.8)
[2025-05-01 12:29] LABS: Iron 38 ug/dL (65-175); Total Iron Binding Capacity 292 ug/dL (250-450); Transferrin Sat 13 % (20-55)
[2025-05-01 12:34] LABS: ALT 16 U/L (16-63); AST 13 U/L (15-37); Albumin 3.9 g/dL (3.4-5.0); Alkaline Phosphatase 69 U/L (46-116); Anion Gap 14.8 mmol/L (3-11); Bilirubin, Total 0.4 mg/dL (0.2-1.0); CO2 20.2 mmol/L (21.0-32.0); Calcium 9.1 mg/dL (8.5-10.1); Chloride 103 mmol/L (98-107); Estimated GFR 16.20 (mL/min/1.73m2); Ferritin 143 ng/mL (26-388); Glucose 104 mg/dL (74-106); Potassium 4.5 mmol/L (3.5-5.1); Sodium 138 mmol/L (136-145); Total Protein 7.5 g/dL (6.4-8.2)
[2025-05-01 12:40] LABS: BUN 81 mg/dL (7-18)
[2025-05-01 22:53] LABS: Total Protein 6.7 g/dL (6.3-8.2)
[2025-05-02 09:00] LABS: Kappa Free Light Chain 4.32 mg/dL (0.33-1.94); Lambda Free Light Chain 1.41 mg/dL (0.57-2.63)
[2025-05-02 15:11] LABS: Albumin 58.7 % (55.8-66.1); Albumin g/dL 3.9 g/dL (3.6-5.2); Alpha 1 g/dL 0.40 g/dL (0.15-0.40); Alpha 2 g/dL 1.30 g/dL (0.50-1.00); Beta g/dL 0.70 g/dL (0.60-1.20); Gamma g/dL 0.40 g/dL (0.60-1.60)
== END 2025-05-01 02:34 | disposition home or self-care (01) ==
PROVIDERS: PCP Family Medicine; Visit Provider Nurse Practitioner Adult Health
DX: C90.01 Multiple myeloma in remission (principal)
CPT/HCPCS: 76770; 80053; 82784; 82728; 83540; 83550; 83883; 84165; 85025

== ENCOUNTER 2025-05-21 01:01 | Outpatient (CLI) | payer MEDICARE, OTHER, SELFPAY ==
--- NOTE | 2025-05-21 07:30 | DI.CT_ITS ---
Exam(s) CT ABDOMEN PELVIS WO EXAM: CT ABDOMEN PELVIS WO CLINICAL HISTORY: further assess collecting system;nav hydronephrosis. TECHNIQUE: Imaging Protocol: Axial computed tomography images with coronal and sagittal reformatted images were created and reviewed. Oral: / no COMPARISON: US US RENAL from 05/01/2025 FINDINGS: Lung Bases: Limited evaluation due to respiratory motion. Fibrotic changes. The heart is enlarged. Liver: Normal density. No suspicious mass. Gallbladder and biliary tract: No radiodense calculus or biliary dilation. Pancreas: Normal density. No abnormal calcifications or inflammatory process. Spleen: Normal. Kidneys: Severe bilateral hydronephrosis. The ureters are dilated down to the ureterovesical junction. No obstructing stones. There is an irregular mass noted at posterior aspect of the bladder. The borders with the prostate are not defined. This may represent a bladder mass or prostate mass. There is some stranding in the adjacent fat. There is bilateral renal parenchymal thinning. Multiple bilateral renal cysts. No solid mass. Adrenal glands: No masses seen. Lymph nodes: Within normal limits. Vasculature: Abdominal aorta non-dilated. Soft tissues: Increased density in the soft tissues of the right lateral hip, presumably posttraumatic hematoma. Bilateral fat containing inguinal hernias. Prior right inguinal hernia repair. Bladder: Ill-defined mass at the posterior inferior aspect versus is infiltrated prostate mass. Mild diffuse wall thickening. Bowel: No obstruction or bowel wall thickening. Peritoneal cavity: No ascites. No focal collection. No mesenteric inflammatory response. Reproductive organs: Enlarged prostate. Borders with the bladder are not clearly defined. Bones: Unremarkable for age. IMPRESSION: Ill-defined mass at the posterior inferior aspect of the bladder versus infiltrative prostate mass. This causes severe bilateral hydronephrosis. Urology consult recommended Unexpected findings RADIATION DOSE DELIVERED: 523.6mGy.cm Total DLP DATA REPOSITORY: All CT scans at this facility are submitted to the National Radiology Data Registry (NRDR) Dose Index Registry (DIR) with the [employer] (A[employer]). RADIATION OPTIMIZATION: All CT scans at this facility use at least one of these dose optimization techniques: automated exposure control; mA and/or kV adjustment per patient size (includes targeted exams where dose is matched to clinical indication); or iterative reconstruction.
--- NOTE | 2025-05-21 12:30 | DI.NM_ITS ---
Exam(s) NM MAG 3 RENOGRAM W LASIX CLINICAL HISTORY: N28.9 Disorder of kidney ureter, worsening renal insufficiency. COMPARISON: CT CT ABDOMEN PELVIS WO from 05/21/2025 EXAMINATION: Dose: 9 mCi Tc-99m MAG3 Images: Immediately for 1 minute followed by dynamic for 30 minutes. Thirty- twomg Lasix was administered after peak uptake in the renal cortex at approximately 12 min. FINDINGS: Time to peak: Right: 15 min (< 5 min normal) Left: 26 min (< 5 min normal) The time activity curve reveals significant delay in the washout of either collecting system. Severe bilateral hydronephrosis with dilatation of the renal pelves and ureters is visible on the images. There is no significant visible decrease in activity at the 30 minute time period. This is consistent with high-grade obstruction bilaterally. (< 10 min normal, 10-15 min Low grade obstruction, 15-20 min moderate,. 20 min high grade) Split renal function: Right: 57 % Left: 43 % IMPRESSION: Marked bilateral hydronephrosis down to the level of the bladder. High-grade level of the obstruction. Please see separate CT report.
[2025-05-22] MEDS: Furosemide 40 MG/4 ML VIAL 32 MG IVP (08:51)
== END 2025-05-21 01:21 ==
LOC: DI 01:01
PROVIDERS: PCP Family Medicine; Visit Provider Family Medicine
DX: N13.30 Unspecified hydronephrosis (principal)
CPT/HCPCS: 74176; 78708; A9540; J1938

== ENCOUNTER 2025-05-29 02:57 | Outpatient (CLI) | payer MEDICARE, OTHER, SELFPAY ==
[2025-05-29 10:06] LABS: Abs Immature Grans 0.04 10^3/uL (0.0-0.06); HCT 30.8 % (40.0-50.0); HGB 9.9 g/dL (13.5-17.5); Immature Grans % 0.5 %; MCH 28.3 pg (27.0-33.0); MCHC 32.1 % (32.0-36.0); MCV 88 fL (80-95); MPV 9.9 fL (8.0-11.0); Platelet Count 323 10^3/uL (130-400); RBC 3.50 10^6/uL (4.36-5.78); RDW 16.2 % (11.8-14.1); RDW-SD 51.9 fL; WBC 8.30 10^3/uL (4.4-10.8)
[2025-05-29 10:25] LABS: ALT 14 U/L (16-63); AST 14 U/L (15-37); Albumin 3.7 g/dL (3.4-5.0); Alkaline Phosphatase 60 U/L (46-116); Anion Gap 11.9 mmol/L (3-11); BUN 57 mg/dL (7-18); Bilirubin, Total 0.4 mg/dL (0.2-1.0); CO2 25.1 mmol/L (21.0-32.0); Calcium 8.7 mg/dL (8.5-10.1); Chloride 106 mmol/L (98-107); Estimated GFR 18.04 (mL/min/1.73m2); Glucose 104 mg/dL (74-106); Potassium 4.6 mmol/L (3.5-5.1); Sodium 143 mmol/L (136-145); Total Protein 7.2 g/dL (6.4-8.2)
[2025-05-29 10:54] LABS: Ferritin 113 ng/mL (26-388)
[2025-05-29 11:21] LABS: Iron 34 ug/dL (65-175); Total Iron Binding Capacity 299 ug/dL (250-450); Transferrin Sat 11 % (20-55)
[2025-05-29 17:37] LABS: Total Protein 6.6 g/dL (6.3-8.2)
[2025-05-30 09:48] LABS: Kappa Free Light Chain 4.94 mg/dL (0.33-1.94); Lambda Free Light Chain 1.44 mg/dL (0.57-2.63)
[2025-05-30 12:40] LABS: Albumin 58.2 % (55.8-66.1); Albumin g/dL 3.8 g/dL (3.6-5.2); Alpha 1 g/dL 0.40 g/dL (0.15-0.40); Alpha 2 g/dL 1.30 g/dL (0.50-1.00); Beta g/dL 0.70 g/dL (0.60-1.20); Gamma g/dL 0.40 g/dL (0.60-1.60)
== END 2025-05-29 02:58 | disposition home or self-care (01) ==
LOC: LBO 02:57
PROVIDERS: PCP Family Medicine; Visit Provider Nurse Practitioner Adult Health
DX: C90.01 Multiple myeloma in remission (principal); D50.0 Iron deficiency anemia secondary to blood loss (chronic)
CPT/HCPCS: 36415; 80053; 82784; 82728; 83540; 83550; 83883; 84165; 85025

== ENCOUNTER 2025-06-26 01:58 | Outpatient (CLI) | payer MEDICARE, OTHER, SELFPAY ==
[2025-06-26 11:47] LABS: Abs Immature Grans 0.05 10^3/uL (0.0-0.06); HCT 28.9 % (40.0-50.0); HGB 9.4 g/dL (13.5-17.5); Immature Grans % 0.5 %; MCH 28.5 pg (27.0-33.0); MCHC 32.5 % (32.0-36.0); MCV 88 fL (80-95); MPV 10.0 fL (8.0-11.0); Platelet Count 296 10^3/uL (130-400); RBC 3.30 10^6/uL (4.36-5.78); RDW 14.3 % (11.8-14.1); RDW-SD 46.3 fL; WBC 9.12 10^3/uL (4.4-10.8)
[2025-06-26 12:20] LABS: Iron 22 ug/dL (65-175); Total Iron Binding Capacity 290 ug/dL (250-450); Transferrin Sat 8 % (20-55)
[2025-06-26 12:36] LABS: ALT 13 U/L (16-63); AST 13 U/L (15-37); Albumin 3.5 g/dL (3.4-5.0); Alkaline Phosphatase 60 U/L (46-116); Anion Gap 13.5 mmol/L (3-11); BUN 63 mg/dL (7-18); Bilirubin, Total 0.4 mg/dL (0.2-1.0); CO2 22.5 mmol/L (21.0-32.0); Calcium 8.8 mg/dL (8.5-10.1); Chloride 104 mmol/L (98-107); Estimated GFR 16.10 (mL/min/1.73m2); Ferritin 110 ng/mL (26-388); Glucose 115 mg/dL (74-106); Potassium 4.7 mmol/L (3.5-5.1); Sodium 140 mmol/L (136-145); Total Protein 7.1 g/dL (6.4-8.2)
[2025-06-27 09:22] LABS: Kappa Free Light Chain 6.13 mg/dL (0.33-1.94); Lambda Free Light Chain 1.48 mg/dL (0.57-2.63)
[2025-06-27 12:53] LABS: Albumin 57.9 % (55.8-66.1); Albumin g/dL 3.6 g/dL (3.6-5.2); Alpha 1 g/dL 0.40 g/dL (0.15-0.40); Alpha 2 g/dL 1.30 g/dL (0.50-1.00); Beta g/dL 0.60 g/dL (0.60-1.20); Gamma g/dL 0.40 g/dL (0.60-1.60); Total Protein 6.3 g/dL (6.3-8.2)
== END 2025-06-26 01:59 | disposition home or self-care (01) ==
LOC: LBO 01:58
PROVIDERS: PCP Family Medicine; Visit Provider Nurse Practitioner Adult Health
DX: C90.01 Multiple myeloma in remission (principal); D50.0 Iron deficiency anemia secondary to blood loss (chronic)
CPT/HCPCS: 36415; 80053; 82784; 82728; 83540; 83550; 83883; 84165; 85025

== ENCOUNTER 2025-09-18 00:38 | Outpatient (CLI) | payer MEDICARE, OTHER, SELFPAY ==
[2025-09-18 10:14] LABS: Abs Immature Grans 0.13 10^3/uL (0.0-0.06); HCT 28.0 % (40.0-50.0); HGB 8.6 g/dL (13.5-17.5); Immature Grans % 1.5 %; MCH 25.6 pg (27.0-33.0); MCHC 30.7 % (32.0-36.0); MCV 83 fL (80-95); MPV 10.2 fL (8.0-11.0); Platelet Count 482 10^3/uL (130-400); RBC 3.36 10^6/uL (4.36-5.78); RDW 15.7 % (11.8-14.1); RDW-SD 47.8 fL; WBC 8.90 10^3/uL (4.4-10.8)
[2025-09-18 10:32] LABS: ALT 7 U/L (10-49); AST 39 U/L (<34); Albumin 4.0 g/dL (3.2-5.0); Alkaline Phosphatase 100 U/L (46-116); Anion Gap 10.7 mmol/L (3-11); BUN 31 mg/dL (9-23); Bilirubin, Total 0.2 mg/dL (0.2-1.2); CO2 22.3 mmol/L (20.0-31.0); Calcium 8.8 mg/dL (8.3-10.6); Chloride 105 mmol/L (98-107); Glucose 102 mg/dL (74-106); Potassium 4.8 mmol/L (3.5-5.1); Sodium 138 mmol/L (136-145); Total Protein 6.5 g/dL (5.7-8.2)
[2025-09-18 10:35] LABS: Ferritin 208 ng/mL (11-307)
[2025-09-18 11:33] LABS: Iron 12 ug/dL (65-175); Total Iron Binding Capacity 225 ug/dL (250-425); Transferrin Sat 5 % (20-55)
[2025-09-19 11:16] LABS: Kappa Free Light Chain 6.04 mg/dL (0.33-1.94); Lambda Free Light Chain 1.65 mg/dL (0.57-2.63)
[2025-09-19 12:09] LABS: Albumin 49.1 % (55.8-66.1); Albumin g/dL 2.8 g/dL (3.6-5.2); Alpha 1 g/dL 0.50 g/dL (0.15-0.40); Alpha 2 g/dL 1.40 g/dL (0.50-1.00); Beta g/dL 0.70 g/dL (0.60-1.20); Gamma g/dL 0.30 g/dL (0.60-1.60); Total Protein 5.8 g/dL (6.3-8.2)
== END 2025-09-18 00:39 | disposition home or self-care (01) ==
LOC: LBO 00:38
PROVIDERS: PCP Family Medicine; Visit Provider Nurse Practitioner Adult Health
DX: D50.0 Iron deficiency anemia secondary to blood loss (chronic) (principal)
CPT/HCPCS: 36415; 80053; 82784; 82728; 83540; 83550; 83883; 84165; 85025